=== PATIENT | male | born 1950 | race Caucasian/White ===

== ENCOUNTER → 2017-03-26 | Outpatient (CLI) | payer OTHER | LOC: FIMAGING 13:06 | PROVIDERS: ATTEND Physician Assistant Medical | DX: M85.88 Other specified disorders of bone density and structure, other site (principal); R60.0 Localized edema ==

== ENCOUNTER 2017-04-03 07:09 | Day surgery (SDC) | payer OTHER ==
[2017-04-03] MEDS ORDERED: NALOXONE HCL 0.4 MG/ML INJ ONE (07:28)
[2017-04-03] MEDS ORDERED: MIDAZOLAM 2 MG/2 ML VIAL ONE (07:28)
[2017-04-03] MEDS ORDERED: fentaNYL 100 MCG/2 ML INJ ONE (07:28)
[2017-04-03] MEDS ORDERED: FLUMAZENIL 0.5 MG/5 ML MDV IVP ONE (07:28)
[2017-04-03] MEDS ORDERED: fentaNYL 100 MCG/2 ML INJ IVP PRN (07:36)
[2017-04-03] MEDS ORDERED: PROTAMINE SULFATE 50 MG/5 ML VIAL IVP PRN (07:36)
[2017-04-03] MEDS ORDERED: FLUMAZENIL 0.5 MG/5 ML MDV IVP PRN (07:36)
[2017-04-03] MEDS ORDERED: MIDAZOLAM 2 MG/2 ML VIAL IVP PRN (07:36)
[2017-04-03] MEDS ORDERED: MEPERIDINE 25 MG/ML SYR IVP PRN (07:36)
[2017-04-03] MEDS ORDERED: NALOXONE HCL 0.4 MG/ML INJ IVP PRN (07:36)
[2017-04-03] MEDS ORDERED: NS 1,000 ML IV SCH (07:45)
--- NOTE | 2017-04-03 08:26 | PDRADPRE ---
Radiology History & Physical Indication for procedure: varicose veins, symptomatic, back pain Surgical history: Lower extremity thrombectomy and varicose vein treatment Home medications: Cyclobenzaprine 10 mg PO DAILY 03/31/17 [Last Taken 04/02/17] IBUPROFEN 800 mg PO Q6HRS 03/31/17 [Last Taken 04/02/17] Lisinopril 5 mg PO DAILY 03/31/17 [Last Taken 04/02/17] Metformin HCl 500 mg PO DAILY 03/31/17 [Last Taken 04/02/17] [place] 3 1,000 mg Softgel 1,000 mg PO DAILY 03/31/17 [Last Taken 04/02/17] Omeprazole 20 mg PO DAILY 03/31/17 [Last Taken 04/02/17] Tylenol 500 mg PO Q6HRS PRN 03/31/17 [Last Taken 04/02/17] Vitamin D3 10,000 units PO DAILY 03/31/17 [Last Taken 04/01/17] Warfarin Sodium 7.5 mg PO DAILY 03/31/17 [Last Taken 03/27/17] Allergies/Adverse Reactions: No Known Allergies Allergy (Unverified 03/31/17 15:57) Heart exam: regular rate and rhythm Lungs exam: clear to auscultation Mallampati Score: Class 2
--- NOTE | 2017-04-03 08:27 | PDPROPOC ---
Sedation Plan of Care Sedation Plan of Care: vital signs stable, mental status noted, patient educated of risks, benefits, alternatives, patient can tolerate sedation ASA Classification: ASA 2 Planned drugs: fentanyl, midazolam Mallampati Score: Class 3 Mallampati Reference Image: Patient passed 3-3-2 rule?: Yes
[2017-04-03 09:38] VITALS: BP 132/79; PULSE 74; RESP 18; O2SAT 97
--- NOTE | 2017-04-03 09:41 | PDRADPN ---
Radiology Procedure Note Date of Procedure: 04/03/17 Radiologist: Dao Michaels Composite Layup Worker(s): Marylu Moeller, RN Anesthesia: IV Sedation, Local (Specify) Pre-op Diagnosis: Left paraspinal mass Post-op Diagnosis: same Indication: pathology Procedure: CT guided biopsy left paraspinal mass Finding(s): solid mass left paraspinal at L4 Inf/Abcess present in the surg proc area at time of surgery?: No Depth: Deep Incisional (Fascial) (Left paraspinal musculature) EBL: Minimal Specimen(s): 18 ga core biopsies for path and culture
[2017-04-03] MEDS ORDERED: ACETAMINOPHEN 325 MG TAB PO PRN (09:44)
[2017-04-03] MEDS ORDERED: ONDANSETRON 4 MG/2 ML VIAL IVP PRN (09:44)
[2017-04-03 10:46] VITALS: TEMP 98.1
== END 2017-04-03 10:31 | disposition home or self-care (01) ==
LOC: FIMAGING 07:09
PROVIDERS: ATTEND Physician Assistant Medical
PROC: 0KBG3ZX Excision of Left Trunk Muscle, Percutaneous Approach, Diagnostic (ICD-10-PCS; principal; 2017-04-03 09:30)
DX: D21.6 Benign neoplasm of connective and other soft tissue of trunk, unspecified (principal); M54.5 Low back pain; M51.37 Other intervertebral disc degeneration, lumbosacral region; M54.42 Lumbago with sciatica, left side
CPT/HCPCS: J2250; J2310; J3010

== ENCOUNTER 2017-04-19 11:06 | Inpatient (IN) | payer OTHER ==
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
[2017-04-19] MEDS ORDERED: IOPAMIDOL (ISOVUE-300) 100 ML BTL ONE (11:57)
--- NOTE | 2017-04-19 12:02 | CPEKG ---
Heart Rate: 121 RR Interval: 496 P-R Interval: 156 QRSD Interval: 86 QT Interval: 292 QTC Interval: 415 P Stella: 60 QRS Stella: 1 T Wave Stella: 54 EKG Severity - BORDERLINE ECG - EKG Impression: SINUS TACHYCARDIA EKG Impression: PROBABLE LEFT ATRIAL ABNORMALITY Electronically Signed By: Shayne Bearden 19-Apr-2017 12:20:24
[2017-04-19 12:26] LABS: PLATELET COUNT 187 10^3/uL (150-400)
[2017-04-19 12:47] LABS: INR 3.24 (0.83-1.16); PROTIME(PATIENT) 32.9 SEC (12.0-15.0)
[2017-04-19] MEDS ORDERED: PIPERACILLIN/TAZO 4.5 GM/DEX 100 ML IV ONE (13:23)
[2017-04-19] MEDS ORDERED: NS 3,500 ML IV ONE (13:23)
[2017-04-19] MEDS ORDERED: VANCOMYCIN HCL/NORMAL SALINE 250 ML IV ONE (14:16)
[2017-04-19] MEDS ORDERED: GADOBUTROL 10 ML VIAL IVP ONE (15:04)
[2017-04-19] MEDS ORDERED: ONDANSETRON DISINTEGRATING 4 MG TAB PO PRN (15:25)
[2017-04-19] MEDS ORDERED: HYDROmorphONE/DILAUDID 1 MG/ML INJ IVP PRN (15:25)
[2017-04-19] MEDS ORDERED: oxyCODONE IR 5 MG TAB PO PRN (15:25)
[2017-04-19] MEDS ORDERED: ONDANSETRON 4 MG/2 ML VIAL IVP PRN (15:25)
[2017-04-19] MEDS ORDERED: D50W 25 GM/50 ML SYR IVP PRN (15:27)
[2017-04-19] MEDS ORDERED: INSULIN LISPRO 100 UNIT/ML SC SCH (15:30)
--- NOTE | 2017-04-19 15:46 | ASMTCMCOM ---
CM Note CM Note Notes: Pt presented to the ED for back pain, fever, difficulty walking, and confusion/AMS. Patient admitted for sepsis, encephelopathy Patient recently had a paraspinal mass removed on 04/03/17 here at [facility]. Patient lives with his Lisbet (pt's MDPOA) in [place]. Patient's PCP is Dr Sabrina Oconnor. Exact DC needs unknown, CM to follow. Date Signed: 04/19/2017 03:45 PM Electronically Signed By:Angelina Mak RN
[2017-04-19] MEDS ORDERED: VANCOMYCIN 1.5 GM in NS 250 ML IV ONE (16:00)
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
[2017-04-19] MEDS ORDERED: ACETAMINOPHEN 325 MG TAB ONE (16:08)
[2017-04-19] MEDS: ACETAMINOPHEN 325 MG TAB PO PRN ×2 (16:19→20:51)
--- NOTE | 2017-04-19 16:41 | PDMN ---
Medical Necessity Medical necessity: C/M review: Patient meets INPT criteria under MCG M-[160 Sepsis and other febrile illness without focal infection, M-600 Osteomyelitis: Acute and persistent sepsis, fevers, 38.1 T max, back pain, suspected source lumbar spine with concern for possible vertebral osteomyelitis, acute encephalopathy, hyponatremia, WBC 17.74, Na 133, VBG lactic acid 3.2, 1.9, requiring planned MRI lumbar spine, Infectious disease consult, echocardiogram, ongoing NPO, IV Cefepime Q 8 hrs., IV Vancomycin, cardiac monitoring, pulse oximetry, supplemental O2 in SDU, comorbid type 2 diabetes, history of DVT on chronic anticoagulation, chronic back pain, 04/03/2017 CT guided muscle biopsy of left psoas muscle which showed chronic inflammation and reactive fibrosis which could be consistent with a chronic infectious etiology such as osteomyelitis, recent 10 day steroid taper therapy - completed 2017. anticipates > 2 MN LOS for ongoing med nec for eval and [place] of above. Patient is Medicare Advantage which follows guidelines [facility] puts forth.
--- NOTE | 2017-04-19 18:05 | ECHO ---
[email or web address] [address] [address] Main: [phone] Fax: Transthoracic Echocardiogram Name: NELSON MOSCOSO MR#: [id number] Study Date: 04/19/2017 Study Time: 05:10 PM Date of : 1950 Age: 66 year(s) Height: 177.8 cm (70 in.) Weight: 117.94 kg (260 lb.) BSA: 2.33 m2 Gender: Male Examination: Echo Indication: sepsis, heart murmur. r/o vegetation Image Quality: Adequate Contrast: Requested by: Jossy Rodriguez BP: 144 mmHg/88 mmHg Heart Rate: Rhythm: Normal sinus rhythm Indication: sepsis, heart murmur. r/o vegetation Procedure Staff Racing Driver: Alissa Vaughan [facility] Reading Physician: Jania Miles Requesting Provider: Jossy Rodriguez Conclusions: Normal size left ventricle. Mild concentric LV hypertrophy. Normal global systolic LV function. EF is 59 %. No regional wall motion abnormality. Normal size right ventricle. Normal RV function. The aortic valve is tri-leaflet. Moderate aortic cusp calcification is present. There is no aortic valve regurgitation. Moderate calcific aortic valve stenosis. It is difficult to rule out a vegetation on the calcified aortic leaflets.. No prior echo. Results discussed with Dr. Rodriguez. Patient will be scheduled for CRESCENCIO Measurements: Chambers Valvular Assessment AV/MV Valvular Assessment TV/PV Normal Normal Normal Name Value Range Name Value Range Name Value Range Ao Chely (MM): 3.3 cm (2.2 cm-3.7 AV Vmax: 3.19 m/s (1 m/s-1.7 PV Vmax: 0.90 m/s (0.6 m/s-0.9 cm) m/s) m/s) IVSd (2D): 1.2 cm (0.6 cm-1.1 AV maxP mmHg ( - ) PV PGmax: 3 mmHg ( - ) cm) AV meanP mmHg ( - ) LVDd (2D): 4.8 cm (4.2 cm-5.9 RAJENDRA (VTI): 1.4 cm ( - ) cm) MV E Vmax: 0.92 m/s ( - ) LVDs (2D): 2.8 cm (2.1 cm-4 MV A Vmax: 0.63 m/s ( - ) cm) MV E/A: 1.46 ( - ) LVPWd (2D): 1.1 cm (0.6 cm-1 cm) LVOTd 2.4 cm 2.4 cm mm Patient: NELSON MOSCOSO Study Date: 04/19/2017 Page 1 of 2 05:10 PM LVEF (BP): 59 % (>=55 %) RVDd(2D): 3.1 cm (1.9 cm-3.8 cmmm) Continued Measurements: Chambers Valvular Assessment AV/MV Name Value Name Value LADs Lon.2 cm MV DecTime: 106 m/s LA Area: 20.0 cm2 MV E' Septal: 0.07 m/s LA Volume: 53 ml MV E/E' Septal: 13.60 LA Volume Index: 22.7 ml/m2 MV E/E' Lateral: 9.00 Additional Vessels Name Value Ao Ascendin.9 cm Findings: Left Ventricle: Normal size left ventricle. Mild concentric LV hypertrophy. Normal global systolic LV function. EF is 59 %. No regional wall motion abnormality. Right Ventricle: Normal size right ventricle. Normal RV function. Left Atrium: The left atrium is normal in size. Right Atrium: The right atrium is normal in size. Mitral Valve: The mitral valve is normal in appearance and function. There is no mitral valve regurgitation. No mitral stenosis is present. There is no mitral valve vegetation. Aortic Valve: The aortic valve is tri-leaflet. Moderate aortic cusp calcification is present. There is no aortic valve regurgitation. Mean aortic valve gradient 26. Moderate calcific aortic valve stenosis. It is difficult to rule out a vegetation on the calcified aortic leaflets.. Tricuspid Valve: The tricuspid valve is normal in appearance and function. There is no tricuspid valve regurgitation. No tricuspid valve vegetation. Pulmonic Valve: Pulmonary valve not well visualized. There is no pulmonic regurgitation seen. Aorta: Normal size aortic root measuring 3.3 cm. Normal size ascending aorta measuring 2.9 cm. IVC: The IVC is not well visualized. Pericardium: No pericardial effusion. (No Signature Object) Patient: NELSON MOSCOSO Study Date: 04/19/2017 Page 2 of 2 05:10 PM [id number]
[2017-04-19] MEDS: INSULIN LISPRO 100 UNIT/ML SC SCH ×2 (18:46→21:45)
[2017-04-19] MEDS: CEFEPIME HCL 2 GM in STERILE WATER INJ 12.5 ML IV SCH (19:23)
--- NOTE | 2017-04-19 20:33 | GCON ---
[f rep st] CONSULTATION NEUROSURGERY CONSULTATION DATE OF CONSULTATION: 04/19/2017 TIME SEEN: Patient was seen and evaluated at approximately 7:28 p.m. in the ICU at [facility]. HISTORY OF PRESENT ILLNESS: The patient is a 66-year-old man who was previously admitted with some l ow back pain, having a biopsy, which just showed some inflammatory tissue. He has a history of diabe beth and DVTs and is on chronic anticoagulation. [facility] and [facility]. He has had chronic back pain for about 6 months, but just recently has been worse, and he had MRI in March which showed abnormal appearance of the left side of the L3-4 i nterspace with some abnormal bone marrow edema and psoas edema. He did have a biopsy then, which pavel wed inflammatory tissue, but nothing more. Interestingly, he says that he felt much better after thi s biopsy. He was also thought to have pain from lumbar stenosis, which he was sent to get an outpati ent epidural steroid injection, and was recently on a 10-day steroid taper. As of yesterday, he had 10/10 back pain with a fever up to 103 degrees. He denied any other significant symptoms, such as ch est pain, shortness of breath, nausea or vomiting. He had a new MRI scan here today which on the STI R sequence shows increased signal in the L4 vertebral body, as well as the inferior portion of the L3 vertebral body. He does have mild L3-4 lateral recess stenosis and some contrast enhancement in the epidural space suggesting a mild phlegmon, but there is no sign of any nerve compression. I do not see any obvious epidural abscess or fluid collection. REVIEW OF SYSTEMS: A 10-point review of systems is negative other than described above in the HPI. PAST MEDICAL HISTORY: 1. Type 2 diabetes. 2. DVTs. 3. Chronic anticoagulation with supratherapeutic INR. 4. Chronic back pain. ALLERGIES: No known drug allergies. MEDICATIONS: The medications were reviewed within the electronic medical record and I do not have an y additions at this time. Of note, he is on warfarin. FAMILY HISTORY: Reviewed with the patient, but is noncontributory to this admission. SOCIAL HISTORY: The patient is and lives independently. He has 2 children. He is a lifetim e nonsmoker and denies any significant alcohol use. PHYSICAL EXAMINATION: VITAL SIGNS: He is currently afebrile with a temperature of 38.1, remainder o f his vital signs are normal and stable. GENERAL: He is awake, alert, and oriented x3. HEENT: Pup ils are equal, round, and react to light. Extraocular movements are intact. Face is symmetric. Ton munir is midline. Palate is symmetric. 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 In the lower extremities, he has full 5/5 s trength at the hip flexors/extensors, knee flexors/extensors, and plantar and dorsiflexion. He has n ormal sensation in the arms and legs and deep tendon reflexes are normal. He does have some midline tenderness in the lumbar spine consistent with the likely infection. LABORATORY DATA: His white count is 17.7, INR is 3.24, lactate is 3.0. Sodium is 133, potassium 4.3 , glucose is 197. IMAGING: Reviewed, see HPI. ASSESSMENT AND PLAN: The patient is a 66-year-old man who appears to have lumbar osteomyelitis at L4 and less so at L3. There is no sign of any compressive lesions of the canal, and I do not see any o bvious fluid collection, although there may be some phlegmon in the epidural space. Overall, I do no t see any need for surgical intervention at this time. We will follow along with the remainder of e infectious disease workup, and if his blood cultures are positive, he can be treated empirically wi antibiotics. If further source is needed, it is possible that Radiology could get a transpedicula r biopsy of the bone at L4. I do not see any good target for biopsy of fluid, as it does not appear there is any abscess fluid nearby. If his symptoms, specifically his leg symptoms worsen, then it is possible he could need a surgical intervention, but I doubt this will be the case. We will follow along and please do not hesitate to contact us with any further questions or concerns. Thanks for the kind consultation. /[id number]/MODL
[2017-04-20] MEDS: CEFEPIME HCL 2 GM in STERILE WATER INJ 12.5 ML IV SCH ×2 (02:06→13:29)
[2017-04-20] MEDS ORDERED: VANCOMYCIN 1.5 GM in NS 250 ML IV SCH (04:00)
[2017-04-20 05:26] LABS: PLATELET COUNT 124 10^3/uL (150-400)
[2017-04-20 05:35] LABS: INR 2.41 (0.83-1.16); PROTIME(PATIENT) 26.2 SEC (12.0-15.0)
--- NOTE | 2017-04-20 07:10 | NEUSURGPN ---
Assessment/Plan: Assessment: 66 yo male that is admitted to IM with back pain and fevers with staph aureus +BCs Plan: -Staph Aureus on BCs-not MRSA -pt seen by Dr Molina and imaging reviewed-no surgery recommended at this time -MRI looks like L3/4 osteo without abscess noted-maybe mild phlegmon-will recommend follow up MRI -no neuro symptoms-will continue to follow -PT/OT-CPM -pt to get a CRESCENCIO and brain MRI to check for other areas of infections -warning signs given -call with any questions or concerns -pt understands and agrees -ok for floor if MRI brain looks ok -d/w Dr Molina Subjective: Awake and alert. NAD. No N/V/D. No new events per Pt/RN Objective: AAO x 3, PERRLA/EOMI no droop CN 2-12 grossly intact +lt touch 5/5 BUE/BLE = Neuro Check Frequency: per routine Urinary Catheter in Place: No - Physician Discussed Patient with Dr.: Molina Patient Seen by Dr.: Molina Neurosurgery Physical Exam - Vitals, I&O, Labs I and O 04/19/17 04/20/17 04/21/17 05:59 05:59 05:59 Intake Total 1235 Output Total 1825 Balance -590 Weight 117.934 kg Intake: Oral (ml) 450 IV Intake (ml) 500 IV Infused (ml) 285 Cefepime HCl 2 gm In 25 Sterile Water Inj 12.5 ml @ 150 mls/hr IV Q8H ASHLEY Rx#:[id number] Vancomycin 1.5 gm In Ns 260 250 ml @ 166.667 mls/hr IV Q12H ASHLEY Rx#: [id number] Output: Urine (ml) 1825 Urinal 1825 Other: Number of Voids Urinal 2 Vital Signs Temp Pulse Resp BP Pulse Ox 36.9 C 78 19 117/51 L 98 04/20/17 02:11 04/20/17 04:00 04/20/17 04:00 04/20/17 04:00 04/20/17 04:00 Laboratory Results 04/20/17 05:15 04/20/17 05:15 ICD10 Worksheet Patient Problems: Problems Problem Status Onset Sepsis Acute
[2017-04-20] MEDS: INSULIN LISPRO 100 UNIT/ML SC SCH ×4 (08:07→20:22)
[2017-04-20] MEDS ORDERED: MIDAZOLAM 2 MG/2 ML VIAL IVP ONE (08:26)
[2017-04-20] MEDS ORDERED: BENZOCAINE UNIT DOSE SPRAY HURRICAINE MM ONE (08:26)
[2017-04-20] MEDS ORDERED: fentaNYL 100 MCG/2 ML INJ IVP ONE (08:26)
[2017-04-20] MEDS ORDERED: NS 500 ML IV ONE (08:26)
[2017-04-20] MEDS ORDERED: NON-FORMULARY NEW DRUG (Omeprazole [Omeprazole] 20 MG) PO SCH (09:00)
[2017-04-20] MEDS ORDERED: PROPOFOL 200 MG/20 ML VIAL ONE (09:25)
--- NOTE | 2017-04-20 09:30 | PDHPUP ---
History & Physical Update H&P update statement: This history and physical update is based on an assessment of the patient which was completed after admission or registration (within 24 hours), but prior to the surgery/procedure. H&P update: H&P reviewed & patient examined, no change in patient's condition since H&P completed
[2017-04-20] MEDS ORDERED: ATROPINE SULFATE 1 MG/10 ML SYR ONE (09:32)
[2017-04-20] MEDS ORDERED: ALBUTEROL 3 ML DEYVIAL IH PRN (09:34)
[2017-04-20] MEDS ORDERED: ONDANSETRON 4 MG/2 ML VIAL IVP PRN (09:34)
[2017-04-20] MEDS ORDERED: ACETAMINOPHEN 500 MG TAB PO PRN (09:34)
[2017-04-20] MEDS ORDERED: NALOXONE HCL 0.4 MG/ML INJ IVP PRN (09:34)
--- NOTE | 2017-04-20 09:35 | PDANEPAE ---
ANE History of Present Illness CRESCENCIO ANE Past Medical History - Cardiovascular History Hx Hypertension: Yes Hx Arrhythmias: No Hx Chest Pain: No Hx Coronary Artery / Peripheral Vascular Disease: Yes Hx CHF / Valvular Disease: No Hx Palpitations: No Cardiovascular History Comment: LLE DVT due to "scared vessels"/vascular insuficiency; - Pulmonary History Hx COPD: No Hx Asthma/Reactive Airway Disease: No Hx Recent Upper Respiratory Infection: No Hx Oxygen in Use at Home: No Hx Sleep Apnea: No - Neurologic History Hx Cerebrovascular Accident: No Hx Seizures: No Hx Dementia: No - Endocrine History Hx Diabetes: Yes Endocrine History Comment: Type 2 DM - Renal History Hx Renal Disorders: No - Liver History Hx Hepatic Disorders: No - Neurological & Psychiatric Hx Hx Neurological and Psychiatric Disorders: No - Cancer History Hx Cancer: No - Congenital Disorder History Hx Congenital Disorders: No - GI History Hx Gastrointestinal Disorders: Yes Gastrointestinal History Comment: GERD; - Other Health History Other Health History: "minor anemia" - Chronic Pain History Chronic Pain: Yes (middle/lower back) - Surgical History Prior Surgeries: L Quad repair; LLE DVT w/ treatment x 2 w/ last one in 2012; T& A; wisdom teeth; L wrist fx w/ surgical repair; ANE Review of Systems Review of Systems: ANE Patient History - Allergies Allergies/Adverse Reactions: No Known Allergies Allergy (Unverified 03/31/17 15:57) - Home Medications Home Medications: Acetaminophen [Tylenol ES 500 mg (*)] 500 mg PO Q6 PRN 04/19/17 [Last Taken Unknown] Cholecalciferol Vit D3 [Vitamin D3 (*)] 10,000 units PO DAILY 04/19/17 [Last Taken Unknown] Cyclobenzaprine [Flexeril 10 MG (*)] 10 mg PO HS PRN 04/19/17 [Last Taken ] Ibuprofen [Motrin (*)] 800 mg PO Q8 PRN 04/19/17 [Last Taken Unknown] Lisinopril [Zestril 5 mg (*)] 5 mg PO DAILY 04/19/17 [Last Taken Unknown] [place]-3 Fatty Acids [Fish Oil 1000 mg (*)] 1,000 mg PO DAILY 04/19/17 [Last Taken Unknown] Omeprazole 20 mg PO DAILY 04/19/17 [Last Taken Unknown] Warfarin Sodium [Coumadin 7.5MG (*)] 7.5 mg PO DAILY16 04/19/17 [Last Taken ] metFORMIN HCL [Metformin HCl] 1,000 mg PO HS 04/19/17 [Last Taken Unknown] - Smoking Hx Smoking Status: Never smoked - Family Anes Hx Family Hx Anesthesia Complications: denies ANE Labs/Vital Signs - Labs Result Diagrams: 04/20/17 05:15 04/20/17 05:15 - Vital Signs Blood Pressure: 112/71 Heart Rate: 80 Respiratory Rate: 18 O2 Sat (%): 97 Height: 177.8 cm Weight: 117.934 kg ANE Physical Exam - Airway Neck exam: decreased ROM Mallampati Score: Class 2 - Pulmonary Pulmonary: clear to auscultation - Cardiovascular Cardiovascular: regular rate and rhythym, systolic murmur - ASA Status ASA Status: III ANE Anesthesia Plan Anesthesia Plan: GA with mask
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
[2017-04-20] MEDS: PANTOPRAZOLE SODIUM 40 MG TAB PO SCH (10:36)
--- NOTE | 2017-04-20 10:38 | POSTANESTH ---
Post Anesthetic Evaluation Cardiovascular Status: Normal, Stable Respiratory Status: Normal, Stable Level of Consciousness/Mental Status: Can Participate in Eval Pain Control: Adequate, Prn Tx Ordered Nausea/Vomiting Control: Adequate, Prn Tx Ordered Complications Possibly Related to Anesthesia: None Noted
[2017-04-20] MEDS ORDERED: GADOBUTROL 10 ML VIAL IVP ONE (12:35)
[2017-04-20] MEDS: ACETAMINOPHEN 325 MG TAB PO PRN (13:29)
--- NOTE | 2017-04-20 14:32 | ECHO ---
[email or web address] [address] [address] Main: [phone] Fax: Transesophageal Echocardiography Name: NELSON MOSCOSO MR#: [id number] Study Date: 04/20/2017 Study Time: 09:37 AM Date of : 1950 Age: 66 year(s) Height: ( ) Weight: ( ) BSA: Gender: Male Examination: CRESCENCIO Indication: eval AV for vegetation Image Quality: Contrast: Requested by: Jossy Rodriguez Heart Rate: Rhythm: BP: / Procedure Staff Bread Racker: Alissa Vaughan [facility] Reading Physician: Jania Miles Requesting Provider: Jossy Rodriguez CRESCENCIO Exam Details Patient Consent: Risks, alternatives of procedure explained to patient, informed consent obtained. Patient Fasting: yes Conclusions: Normal size left ventricle. Normal global systolic LV function. Upper normal size right ventricle. Normal RV function. The left atrium is mildly dilated. An agitated saline study was performed and was negative for intracardiac shunting. No thrombus in left appendage. The aortic valve is tri-leaflet. Small mobile echo noted on the aortic side of the non-coronary leaflet, could be vegetation, lamble or calcification. Mild to moderate calcification of the non and left aortic leaflets. No aortic regurgitation. Moderate aortic stenosis. Measurements: Chambers Valvular Assessment AV/MV Valvular Assessment TV/PV Normal Normal Normal Name Value Range Name Value Range Name Value Range Additional Measurements: Patient: NELSON MOSCOSO Study Date: 04/20/2017 Page 1 of 2 09:37 AM Findings: Left Ventricle: Normal size left ventricle. Normal global systolic LV function. Right Ventricle: Upper normal size right ventricle. Normal RV function. Left Atrium: The left atrium is mildly dilated. An agitated saline study was performed and was negative for intracardiac shunting. Left Atrial Appendage: No thrombus in left appendage. Right Atrium: The right atrium is mildly dilated. Definite Eustachian valve in right atrium. Mitral Valve: The mitral valve is normal in appearance and function. There is mild thickening of the mitral valve leaflets. Trivial to mild mitral regurgitation. There is no mitral valve vegetation. Aortic Valve: The aortic valve is tri-leaflet. Small mobile echo noted on the aortic side of the non-coronary leaflet, could be vegetation, lamble or calcification. Mild to moderate calcification of the non and left aortic leaflets. No aortic regurgitation. Moderate aortic stenosis. Tricuspid Valve: The tricuspid valve is normal in appearance and function. There is no significant tricuspid valve regurgitation. No tricuspid valve vegetation. Pulmonic Valve: The pulmonic valve is normal in appearance and function. There is mild pulmonic cusp thickening. There is no pulmonary valve vegetation. l1n (No Signature Object) Patient: NELSON MOSCOSO Study Date: 04/20/2017 Page 2 of 2 09:37 AM [id number]
[2017-04-20] MEDS ORDERED: HYDROmorphone HCL/NS 0.5 MG/ML SYR IVP PRN (15:30)
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
--- NOTE | 2017-04-20 16:11 | HOSPPROG ---
Hospitalist Progress Note Assessment/Plan: 66 yo M w low back pain, sepsis and mssa bacteremia. imaging s/o L spine osteomyelitis mssa bacteremia: on cefazolin CRESCENCIO w AoV lesion although not clearly vegetaion exam notable for no embolic phenomena source is likley L3L4 osteomyelitis psoas phlegmon: no abscess per mri may need repeat imaging no LE weakness ? endocarditis: by [facility] criteria, has SBE if AoV lesion considered to be vegetation very small per dr clements requires prolonged abx for vertebral osteomyelitis ekg w normal intervals (interp by me) pain- well controlled h/o multplie dvt: resume warfarin dispo: inpt Subjective: defervesced. case d/w sammy Objective: Vital Signs Temp Pulse Resp BP Pulse Ox 37.4 C 94 16 118/55 L 93 04/20/17 12:00 04/20/17 12:00 04/20/17 12:00 04/20/17 12:00 04/20/17 12:00 Laboratory Results 04/20/17 05:15 04/20/17 05:15 04/19/17 04/20/17 04/21/17 05:59 05:59 05:59 Intake Total 1235 1460 Output Total 1825 125 Balance -590 1335 PT 26.2 SEC (12.0-15.0) H 04/20/17 05:15 INR 2.41 (0.83-1.16) H 04/20/17 05:15 - Physical Exam Constitutional: no apparent distress, appears nourished Eyes: PERRL, anicteric sclera Ears, Nose, Mouth, Throat: moist mucous membranes, hearing normal Cardiovascular: regular rate and rhythym, systolic murmur Respiratory: no respiratory distress, no rales or rhonchi Gastrointestinal: normoactive bowel sounds, soft, non-tender abdomen Genitourinary: no bladder fullness, No ponce in urethra Skin: warm, other (no splinter hemorrhages or janeway) Musculoskeletal: full muscle strength, no muscle tenderness Neurologic: AAOx3, sensation intact bilaterally Psychiatric: interacting appropriately Lymph, Heme, Immunologic: No no cervical LAD ICD10 Worksheet Patient Problems: Problems Problem Status Onset Sepsis Acute
[2017-04-20] MEDS ORDERED: CYCLOBENZAPRINE 10 MG TAB PO PRN (16:22)
[2017-04-20] MEDS: WARFARIN SODIUM 7.5 MG TAB PO SCH (16:58)
[2017-04-20] MEDS: ceFAZolin 2 GM/SWFI 2 GM/20 ML SYR IVP SCH (20:27)
[2017-04-20] MEDS ORDERED: ceFAZolin 2 GM/DEXTROSE 100 ML IV SCH (22:00)
[2017-04-21] MEDS: ceFAZolin 2 GM/SWFI 2 GM/20 ML SYR IVP SCH ×3 (05:36→21:13)
[2017-04-21] MEDS: INSULIN LISPRO 100 UNIT/ML SC SCH ×4 (07:28→21:11)
--- NOTE | 2017-04-21 08:23 | NEUSURGPN ---
Assessment/Plan: Assessment: 66 yo male that is admitted to IM with back pain and fevers with staph aureus +BCs Plan: -Staph Aureus on BCs-not MRSA -MRI looks like L3/4 osteo without abscess noted-maybe mild phlegmon-will recommend follow up MRI -Patient continues to improve with back and left leg symptoms, slept through the night without medications -PT/OT -pt to get a CRESCENCIO and brain MRI to check for other areas of infections -MRI brain with sinusitis, no other abnormalities seen -It is our hopes the patient can continue to improve with current antbx treatment regimen and avoid surgery -We will sign off, please contact neurosurgery with any questions or change in status -Warning signs and symptoms discussed with patient -Discussed patient with Dr Molina Subjective: Symptoms improving Objective: AAO x 3, PERRLA/EOMI no droop CN 2-12 grossly intact +lt touch 5/5 BUE/BLE = Neuro Check Frequency: per routine Urinary Catheter in Place: No - Physician Discussed Patient with Dr.: Molina Neurosurgery Physical Exam - Vitals, I&O, Labs I and O 04/20/17 04/21/17 04/22/17 05:59 05:59 05:59 Intake Total 1235 2803 Output Total 1825 1145 Balance -590 1658 Weight 117.934 kg 117.934 kg Intake: Oral (ml) 450 2520 IV Intake (ml) 500 283 IV Infused (ml) 285 Cefepime HCl 2 gm In 25 Sterile Water Inj 12.5 ml @ 150 mls/hr IV Q8H ASHLEY Rx#:[id number] Vancomycin 1.5 gm In Ns 260 250 ml @ 166.667 mls/hr IV Q12H ASHLEY Rx#: [id number] Output: Urine (ml) 1825 1145 Urinal 1825 1145 Other: Number of Voids Urinal 2 3 Vital Signs Temp Pulse Resp BP Pulse Ox 36.3 C 85 15 128/69 H 94 04/21/17 07:34 04/21/17 07:34 04/21/17 07:34 04/21/17 07:34 04/21/17 07:34 Laboratory Results 04/20/17 05:15 04/20/17 05:15 ICD10 Worksheet Patient Problems: Problems Problem Status Onset Sepsis Acute
--- NOTE | 2017-04-21 09:40 | ASMTCMCOM ---
CM Note CM Note Notes: Faxed patient onfo to 3[facility]der to becker out the cost of receiving IV ABX at home vs coming into the infusion clinic. Date Signed: 04/21/2017 09:40 AM Electronically Signed By:Sue Hill LCSW
[2017-04-21] MEDS: PANTOPRAZOLE SODIUM 40 MG TAB PO SCH (09:44)
[2017-04-21 10:00] LABS: PLATELET COUNT 131 10^3/uL (150-400)
--- NOTE | 2017-04-21 10:58 | PCMIDPN ---
Assessment/Plan: #Sepsis: resolved, due to multiple sites of infection from MSSA #MSSA AV endocarditis (sm veg) with L paraspinous phlegmon 4 x 3.5cm and L3 and L4 OM/discitis. MRI brain negative. I did not detect any neuro deficits. Delirium resolved, WBC normalized. --continue high dose cefazolin IV, will need 8 weeks of IV antibiotics , 06/16 stop date --awaiting repeat blood cx collected today 04/21 --discussed skin care Medications 3 Generic Name Dose Route Start Last Admin Trade Name Fretal PRN Reason Stop Dose Admin Cefazolin Sodium 2 gm in 20 mls @ 200 mls/hr 04/20/17 22:00 04/21/17 05:36 Cefazolin Syringe IVP 05/20/17 21:59 20 mls Q8HRS ASHLEY micro 04/19 Blood cx (2) MSSA 04/21 blood cx (2) pending Subjective: feeling much better, still w some mild L sided lower back pain at level of sacrum. Looser stool following drinking prune juice plans to change is diet for the better Objective: Vital Signs Temp Pulse Resp BP Pulse Ox 36.3 C 85 15 128/69 H 94 04/21/17 07:34 04/21/17 07:34 04/21/17 07:34 04/21/17 07:34 04/21/17 07:34 Laboratory Results 04/21/17 09:40 04/20/17 05:15 04/20/17 04/21/17 04/22/17 05:59 05:59 05:59 Intake Total 1235 2803 Output Total 1825 1145 Balance -590 1658 - Physical Exam General Appearance: alert, no apparent distress EENT: pale conjunctiva, other (MMM), No scleral icterus Respiratory: lungs clear, No accessory muscle use Cardiac/Chest: regular rate, rhythm, No systolic murmur Abdomen: normal bowel sounds, non-tender, soft Male Genitalia: No ponce Skin: No diaphoresis, No jaundice, No rash, No embolic lesions Neuro/Psych: no motor/sensory deficits, alert, normal mood/affect, oriented x 3 - Time Spent With Patient Time Spent with Patient: greater than 35 minutes (reviewed findings, extent of infection, planned therapy and potential need for surgical debridement of lumbar process. Coordinated care with Dr. Car and Dr. Hernandez) Time Spent with Patient: Greater than 35 minutes spent on this patients care, greater than 50% of time spent counseling, educating, and coordinating care regarding the above mentioned plan. ICD10 Worksheet Patient Problems: Problems Problem Status Onset Sepsis Acute
--- NOTE | 2017-04-21 11:48 | HOSPPROG ---
Hospitalist Progress Note Assessment/Plan: # severe sepsis (fever, leukocytosis) d/t MSSA bacteremia - cont IV ancef - repeat BCx today NGTD # L3-4 osteomyelitis with psoas phlegmon - mild L leg numbness - nsg following # possible AV endocarditis - no stigmata of endocarditis but small veg on CRESCENCIO - does not change duration of abx # hx DVT - cont warfarin # DM2 - on metformin - cont lispro SSI Subjective: still numb on outside of L leg Objective: Vital Signs Temp Pulse Resp BP Pulse Ox 36.3 C 85 15 128/69 H 94 04/21/17 07:34 04/21/17 07:34 04/21/17 07:34 04/21/17 07:34 04/21/17 07:34 Laboratory Results 04/21/17 09:40 04/20/17 05:15 04/20/17 04/21/17 04/22/17 05:59 05:59 05:59 Intake Total 1235 2803 Output Total 1825 1145 Balance -590 1658 PT 26.2 SEC (12.0-15.0) H 04/20/17 05:15 INR 2.41 (0.83-1.16) H 04/20/17 05:15 chart reviewed MRIs reviewed abd CT reviewed discussed with Nannette Finnegan and Josep - Physical Exam Constitutional: no apparent distress, appears nourished Cardiovascular: regular rate and rhythym, systolic murmur, No irregularly irregular, No diastolic murmur Respiratory: no respiratory distress, no rales or rhonchi, clear to auscultation Gastrointestinal: normoactive bowel sounds, soft, non-tender abdomen, no palpable masses ICD10 Worksheet Patient Problems: Problems Problem Status Onset Sepsis Acute
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
--- NOTE | 2017-04-21 14:32 | ASMTCMCOM ---
CM Note CM Note Notes: Ita here from [facility]. Patient's cost is $43.92/wk which will incl RN and supplies. Patient would like to have IV ABX at home. has ordered PT in the hospital. This CM asked Ita, to look for RN and PT to follow with HC at time of discharge. Date Signed: 04/21/2017 02:32 PM Electronically Signed By:Sue Hill LCSW
[2017-04-21] MEDS: WARFARIN SODIUM 7.5 MG TAB PO SCH (16:08)
[2017-04-21] MEDS: ACETAMINOPHEN 325 MG TAB PO PRN (16:08)
[2017-04-22] MEDS: ACETAMINOPHEN 325 MG TAB PO PRN ×5 (05:02→23:05)
[2017-04-22] MEDS: ceFAZolin 2 GM/SWFI 2 GM/20 ML SYR IVP SCH ×3 (05:39→21:15)
[2017-04-22 06:11] LABS: INR 1.65 (0.83-1.16); PROTIME(PATIENT) 19.6 SEC (12.0-15.0)
[2017-04-22] MEDS: INSULIN LISPRO 100 UNIT/ML SC SCH ×4 (09:02→21:16)
[2017-04-22] MEDS: PANTOPRAZOLE SODIUM 40 MG TAB PO SCH (09:04)
--- NOTE | 2017-04-22 13:52 | PCMIDPN ---
Assessment/Plan: #Sepsis: resolved, due to multiple sites of infection from MSSA #MSSA AV endocarditis (sm veg) with L paraspinous phlegmon 4 x 3.5cm and L3 and L4 OM/discitis. blood cx 04/21 neg --continue high dose cefazolin IV, will need 8 weeks of IV antibiotics , 06/16 stop date --if blood cx neg tomorrow can place PICC and dc home --completed interagency form, discussed w case management. Coordinated care with DR. Hernandez [facility] cefazolin IV #2 micro 04/19 Blood cx (2) MSSA 04/21 blood cx (2) NGTD Subjective: Patient rode a stationary bicycle this a.m. Feeling generally well, mild increase in back pain overnight Objective: Vital Signs Temp Pulse Resp BP Pulse Ox 36.8 C 73 16 126/82 H 94 04/22/17 08:00 04/22/17 08:00 04/22/17 08:00 04/22/17 08:00 04/22/17 08:00 Laboratory Results 04/21/17 09:40 04/22/17 05:16 04/21/17 04/22/17 04/23/17 05:59 05:59 05:59 Intake Total 2803 1950 Output Total 1145 2425 Balance 1658 -475 General Appearance: alert, no apparent distress EENT: pale conjunctiva, no thrush, MMM), No scleral icterus Respiratory: lungs clear, No accessory muscle use Cardiac/Chest: regular rate, rhythm, faint systolic murmur Abdomen: normal bowel sounds, non-tender, soft Male Genitalia: No ponce Skin: No diaphoresis, No jaundice, No rash, No embolic lesions Neuro/Psych: no motor/sensory deficits, alert, normal mood/affect, oriented x 3 - Time Spent With Patient Time Spent with Patient: greater than 35 minutes Time Spent with Patient: Greater than 35 minutes spent on this patients care, greater than 50% of time spent counseling, educating, and coordinating care regarding the above mentioned plan. ICD10 Worksheet Patient Problems: Problems Problem Status Onset Sepsis Acute
--- NOTE | 2017-04-22 13:53 | PDIAF ---
- Diagnosis Diagnosis: MSSA AV endocarditis & L paraspinous phlegmon L3 and L4 OM/discitis Code Status: Full Code - Medication Management Discharge Medications: Medications to Continue on Transfer Acetaminophen [Tylenol ES 500 mg (*)] 500 mg PO Q6 PRN 04/19/17 [Last Taken Unknown] Cholecalciferol Vit D3 [Vitamin D3 (*)] 10,000 units PO DAILY 04/19/17 [Last Taken Unknown] Cyclobenzaprine [Flexeril 10 MG (*)] 10 mg PO HS PRN 04/19/17 [Last Taken ] Ibuprofen [Motrin (*)] 800 mg PO Q8 PRN 04/19/17 [Last Taken Unknown] Lisinopril [Zestril 5 mg (*)] 5 mg PO DAILY 04/19/17 [Last Taken Unknown] [place]-3 Fatty Acids [Fish Oil 1000 mg (*)] 1,000 mg PO DAILY 04/19/17 [Last Taken Unknown] Omeprazole 20 mg PO DAILY 04/19/17 [Last Taken Unknown] Warfarin Sodium [Coumadin 7.5MG (*)] 7.5 mg PO DAILY16 04/19/17 [Last Taken ] metFORMIN HCL [Metformin HCl] 1,000 mg PO HS 04/19/17 [Last Taken Unknown] [employer] 2[employer] Antibiotics: cefazolin 6gm IV continuous infusion Care Home Antibiotic Stop Date: 06/16/17 Discharge Medications: Refer to the Discharge Home Medication list for PRN reason. PICC Care - Routine: Yes - Orders Services needed: Home Care, Registered Nurse Home Care Face to Face: I certify that this patient was under my care and that I had the required [id number] encounter meeting the encounter requirements on the discharge day. My findings support the fact that the patient is homebound as defined in Home Care Face to Face Continued: CMS Chapter 7 Medicare Benefits Manual 30.1.1 , The condition of the patient is such that there exists a normal inability to leave home and consequently, leaving home would require a considerable and taxing effort. Isolation Type: None - Labs/Radiology CBC w/diff Date: 04/27/17 (weekly Thursday) CMP Date: 04/27/17 (weekly Thursday) Call or Fax Lab and Imaging Results to: Dedra Finnegan MD [facility] at fax [phone] - Follow Up Care Current Providers and Referrals: Sabrina Oconnor [Primary Care Provider] - As per Instructions Dedra Finnegan MD [Medical Doctor] - 05/05/17 11:00 am
--- NOTE | 2017-04-22 14:17 | ASMTCMCOM ---
CM Note CM Note Notes: Received call from Casper at [facility], can accept pt for RN/PT. Pt will dc home likely tomorrow. DC Plan: Homecare + [facility] Date Signed: 04/22/2017 02:17 PM Electronically Signed By:Sharmila Sage RN
--- NOTE | 2017-04-22 14:33 | HOSPPROG ---
Hospitalist Progress Note Assessment/Plan: # severe sepsis (fever, leukocytosis) d/t MSSA bacteremia - cont IV ancef, plan 8 weeks - repeat BCx today NGTD # L3-4 osteomyelitis with psoas phlegmon - mild L leg numbness - nsg following # likely AV endocarditis - no stigmata of endocarditis but small veg on CRESCENCIO - does not change duration of abx # hx DVT - cont warfarin; INR slightly low - increased dose tonight # DM2 - on metformin - cont lispro SSI Subjective: feels well today; back still hurts but he was able to ride a stationary bike this am Objective: Vital Signs Temp Pulse Resp BP Pulse Ox 36.8 C 73 16 126/82 H 94 04/22/17 08:00 04/22/17 08:00 04/22/17 08:00 04/22/17 08:00 04/22/17 08:00 Laboratory Results 04/21/17 09:40 04/22/17 05:16 04/21/17 04/22/17 04/23/17 05:59 05:59 05:59 Intake Total 2803 1950 Output Total 1145 2425 Balance 1658 -475 PT 19.6 SEC (12.0-15.0) H 04/22/17 05:16 INR 1.65 (0.83-1.16) H 04/22/17 05:16 - Physical Exam Constitutional: no apparent distress, appears nourished Cardiovascular: regular rate and rhythym, systolic murmur, No irregularly irregular, No diastolic murmur, No JVD Respiratory: no respiratory distress, no rales or rhonchi Gastrointestinal: soft, non-tender abdomen, No distension ICD10 Worksheet Patient Problems: Problems Problem Status Onset Sepsis Acute
[2017-04-22] MEDS ORDERED: WARFARIN SODIUM 5 MG TAB PO ONE (16:00)
[2017-04-23 05:28] LABS: INR 1.97 (0.83-1.16); PROTIME(PATIENT) 22.5 SEC (12.0-15.0)
[2017-04-23] MEDS: ceFAZolin 2 GM/SWFI 2 GM/20 ML SYR IVP SCH ×3 (05:43→21:50)
[2017-04-23] MEDS: PANTOPRAZOLE SODIUM 40 MG TAB PO SCH (08:22)
[2017-04-23] MEDS: ACETAMINOPHEN 325 MG TAB PO PRN ×2 (08:45→18:10)
[2017-04-23] MEDS: INSULIN LISPRO 100 UNIT/ML SC SCH ×4 (09:28→21:50)
--- NOTE | 2017-04-23 11:50 | PCMIDPN ---
Assessment/Plan: #Sepsis: resolved, due to multiple sites of infection from MSSA #MSSA AV endocarditis (sm veg) with L paraspinous phlegmon 4 x 3.5cm and L3 and L4 OM/discitis. 1/2 of blood cx positive from 04/21 today. no new labs today. Temp max 99 --continue high dose cefazolin IV, will need 8 weeks of IV antibiotics , 06/16 stop date --repeat blood cx today --interagency completed and follow-up appointments established Medications cefazolin IV #3 micro 04/19 Blood cx (2) MSSA 04/21 blood cx (1/2) GPC Subjective: Back pain is a little better today. Yesterday was increased after increased activity. No shortness of breath or cough. No diarrhea Objective: Vital Signs Temp Pulse Resp BP Pulse Ox 37.1 C 76 18 129/94 H 92 04/23/17 07:31 04/23/17 07:31 04/23/17 07:31 04/23/17 07:31 04/23/17 07:31 Laboratory Results 04/21/17 09:40 04/22/17 05:16 04/22/17 04/23/17 04/24/17 05:59 05:59 05:59 Intake Total 1950 Output Total 6607 9403 542 Balance -475 -2967 -119 - Physical Exam General Appearance: alert, no apparent distress, obese EENT: pale conjunctiva, No thrush Respiratory: lungs clear, No accessory muscle use Neck: supple Cardiac/Chest: regular rate, rhythm, systolic murmur (Faint) Extremities: No pedal edema Abdomen: non-tender, soft Skin: pallor, No diaphoresis, No jaundice, No rash Neuro/Psych: alert, normal mood/affect, oriented x 3 ICD10 Worksheet Patient Problems: Problems Problem Status Onset Sepsis Acute
--- NOTE | 2017-04-23 14:44 | HOSPPROG ---
Hospitalist Progress Note Assessment/Plan: # severe sepsis (fever, leukocytosis) d/t MSSA bacteremia - surveillance cultures positive - more drawn today - cont IV ancef, plan 8 weeks # L3-4 osteomyelitis with psoas phlegmon - mild L leg numbness - nsg following # AV endocarditis - no stigmata of endocarditis but small veg on CRESCENCIO; notably, he reports his murmur is new - does not change duration of abx # hx DVT - cont warfarin - recheck INR tomorrow # DM2 - on metformin (holding) - cont lispro SSI Subjective: back pain better Objective: Vital Signs Temp Pulse Resp BP Pulse Ox 37.1 C 76 18 129/94 H 92 04/23/17 07:31 04/23/17 07:31 04/23/17 07:31 04/23/17 07:31 04/23/17 07:31 Laboratory Results 04/21/17 09:40 04/22/17 05:16 04/22/17 04/23/17 04/24/17 05:59 05:59 05:59 Intake Total 1950 Output Total 2425 1475 500 Balance -475 -1475 -500 PT 22.5 SEC (12.0-15.0) H 04/23/17 04:47 INR 1.97 (0.83-1.16) H 04/23/17 04:47 - Physical Exam Constitutional: no apparent distress, appears nourished Cardiovascular: regular rate and rhythym, systolic murmur, No irregularly irregular, No diastolic murmur Respiratory: no respiratory distress, no rales or rhonchi, clear to auscultation Gastrointestinal: soft, non-tender abdomen, no palpable masses ICD10 Worksheet Patient Problems: Problems Problem Status Onset Sepsis Acute
--- NOTE | 2017-04-23 16:14 | ASMTCMCOM ---
CM Note CM Note Notes: Spoke w/, pt not ready for dc, positive blood cultures, can discharge on Thursday at earliest. Luz at [facility] notified. [facility] Date Signed: 04/23/2017 04:13 PM Electronically Signed By:Sharmila Sage RN
[2017-04-23] MEDS: WARFARIN SODIUM 7.5 MG TAB PO SCH (16:40)
[2017-04-23 23:36] VITALS: RESP 16
[2017-04-24] MEDS: ACETAMINOPHEN 325 MG TAB PO PRN ×4 (04:38→20:57)
[2017-04-24] MEDS: ceFAZolin 2 GM/SWFI 2 GM/20 ML SYR IVP SCH ×3 (05:09→20:57)
[2017-04-24 06:22] LABS: INR 2.25 (0.83-1.16); PROTIME(PATIENT) 24.9 SEC (12.0-15.0)
[2017-04-24] MEDS: INSULIN LISPRO 100 UNIT/ML SC SCH ×4 (08:33→20:56)
[2017-04-24] MEDS: PANTOPRAZOLE SODIUM 40 MG TAB PO SCH (08:34)
--- NOTE | 2017-04-24 11:08 | PCMIDPN ---
Assessment/Plan: Assessment: MSSA aortic valve endocarditis, paraspinous phlegmon in the lumbar area, L3-L4 diskitis. Covering with high-dose cefazolin 2 g IV q.8 hours. Patient appears to be clinically improving. Back pain is stable to improved. Plan: 1. Continue IV cefazolin 2 g q.8 hours. Duration of 8 weeks. 2. Follow up repeat blood cultures. 3. Follow weekly toxicity labs. 4. Follow clinical appearance. 04/24/17 16:42 Subjective: Patient is resting in a chair in his hospital room. He is joined by friends who are visiting. He reports no new complaints. States he is gradually feeling better. Tolerating cefazolin without complaint of skin rash or diarrhea. Objective: Cefazolin # 4 Vital Signs Temp Pulse Resp BP Pulse Ox 37.1 C 83 16 152/78 H 91 L 04/24/17 07:22 04/24/17 07:22 04/24/17 07:22 04/24/17 07:22 04/24/17 07:22 Laboratory Results 04/21/17 09:40 04/22/17 05:16 04/23/17 04/24/17 04/25/17 05:59 05:59 05:59 Output Total 1475 500 Balance -1475 -500 - Physical Exam General Appearance: WD/WN, alert, no apparent distress, non-toxic Respiratory: lungs clear, normal breath sounds, No respiratory distress Cardiac/Chest: regular rate, rhythm, systolic murmur, No tachycardia Skin: normal color, warm/dry, No rash Neuro/Psych: alert, normal mood/affect, oriented x 3 ICD10 Worksheet Patient Problems: Problems Problem Status Onset Sepsis Acute
--- NOTE | 2017-04-24 14:30 | HOSPPROG ---
Hospitalist Progress Note Assessment/Plan: # severe sepsis (fever, leukocytosis) d/t MSSA bacteremia - surveillance cultures positive - more drawn today - cont IV ancef, plan 8 weeks # L3-4 osteomyelitis with psoas phlegmon - mild L leg numbness - nsg following # AV endocarditis - no stigmata of endocarditis but small veg on CRESCENCIO; notably, he reports his murmur is new - does not change duration of abx # hx DVT - cont warfarin - INR ok # DM2 - on metformin (holding) - cont lispro SSI Subjective: back pain was better when he first awoke Objective: Vital Signs Temp Pulse Resp BP Pulse Ox 37.1 C 83 16 152/78 H 91 L 04/24/17 07:22 04/24/17 07:22 04/24/17 07:22 04/24/17 07:22 04/24/17 07:22 Laboratory Results 04/21/17 09:40 04/22/17 05:16 04/23/17 04/24/17 04/25/17 05:59 05:59 05:59 Output Total 1475 500 Balance -1475 -500 PT 24.9 SEC (12.0-15.0) H 04/24/17 05:21 INR 2.25 (0.83-1.16) H 04/24/17 05:21 - Physical Exam Constitutional: no apparent distress, appears nourished Cardiovascular: regular rate and rhythym, systolic murmur Respiratory: no respiratory distress, no rales or rhonchi, clear to auscultation Gastrointestinal: soft, non-tender abdomen, no palpable masses ICD10 Worksheet Patient Problems: Problems Problem Status Onset Sepsis Acute
[2017-04-24] MEDS ORDERED: HYDROmorphONE/DILAUDID 2 MG/ML INJ IVP PRN (15:29)
[2017-04-24] MEDS: WARFARIN SODIUM 5 MG TAB PO SCH (16:21)
[2017-04-24] MEDS: WARFARIN SODIUM 7.5 MG TAB PO SCH (18:14)
[2017-04-25] MEDS: ceFAZolin 2 GM/SWFI 2 GM/20 ML SYR IVP SCH ×2 (05:16→15:27)
[2017-04-25 05:28] LABS: PLATELET COUNT 214 10^3/uL (150-400)
[2017-04-25 05:49] LABS: INR 2.47 (0.83-1.16); PROTIME(PATIENT) 26.7 SEC (12.0-15.0)
[2017-04-25] MEDS: ACETAMINOPHEN 325 MG TAB PO PRN (06:16)
[2017-04-25 07:16] VITALS: BP 139/84; PULSE 92; TEMP 98.1; O2SAT 93
[2017-04-25] MEDS: INSULIN LISPRO 100 UNIT/ML SC SCH ×2 (07:31→11:59)
[2017-04-25] MEDS: PANTOPRAZOLE SODIUM 40 MG TAB PO SCH (07:31)
[2017-04-25] MEDS ORDERED: ALTEPLASE 2 MG VIAL IVP PRN (09:19)
--- NOTE | 2017-04-25 11:59 | PDIAF ---
- Diagnosis Diagnosis: MSSA AV endocarditis & L paraspinous phlegmon L3 and L4 OM/discitis Code Status: Full Code - Medication Management Discharge Medications: Medications to Continue on Transfer Acetaminophen [Tylenol ES 500 mg (*)] 500 mg PO Q6 PRN 04/19/17 [Last Taken Unknown] Cholecalciferol Vit D3 [Vitamin D3 (*)] 10,000 units PO DAILY 04/19/17 [Last Taken Unknown] Cyclobenzaprine [Flexeril 10 MG (*)] 10 mg PO HS PRN 04/19/17 [Last Taken ] Ibuprofen [Motrin (*)] 800 mg PO Q8 PRN 04/19/17 [Last Taken Unknown] Lisinopril [Zestril 5 mg (*)] 5 mg PO DAILY 04/19/17 [Last Taken Unknown] [place]-3 Fatty Acids [Fish Oil 1000 mg (*)] 1,000 mg PO DAILY 04/19/17 [Last Taken Unknown] Omeprazole 20 mg PO DAILY 04/19/17 [Last Taken Unknown] Warfarin Sodium [Coumadin 7.5MG (*)] 7.5 mg PO DAILY16 04/19/17 [Last Taken ] metFORMIN HCL [Metformin HCl] 1,000 mg PO HS 04/19/17 [Last Taken Unknown] 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 PICC Care - Routine: Yes - Orders Services needed: Home Care, Registered Nurse Home Care Face to Face: I certify that this patient was under my care and that I had the required [id number] encounter meeting the encounter requirements on the discharge day. My findings support the fact that the patient is homebound as defined in Home Care Face to Face Continued: CMS Chapter 7 Medicare Benefits Manual 30.1.1 , The condition of the patient is such that there exists a normal inability to leave home and consequently, leaving home would require a considerable and taxing effort. Isolation Type: None Diet Recommendation: no restrictions on diet - Labs/Radiology CBC w/diff Date: 04/27/17 (weekly Thursday) CMP Date: 04/27/17 (weekly Thursday) Call or Fax Lab and Imaging Results to: Dedra Finnegan MD [facility] at fax [phone] - Follow Up Care Current Providers and Referrals: Sabrina Oconnor [Primary Care Provider] - As per Instructions Dedra Finnegan MD [Medical Doctor] - 05/05/17 11:00 am Sandeep Molina MD [Medical Doctor] - (1-2 weeks, please call for an appointment)
--- NOTE | 2017-04-25 12:16 | PDIAF ---
- Diagnosis Diagnosis: MSSA AV endocarditis & L paraspinous phlegmon L3 and L4 OM/discitis Code Status: Full Code - Medication Management Discharge Medications: Medications to Continue on Transfer Acetaminophen [Tylenol ES 500 mg (*)] 500 mg PO Q6 PRN 04/19/17 [Last Taken Unknown] Cholecalciferol Vit D3 [Vitamin D3 (*)] 10,000 units PO DAILY 04/19/17 [Last Taken Unknown] Cyclobenzaprine [Flexeril 10 MG (*)] 10 mg PO HS PRN 04/19/17 [Last Taken ] Ibuprofen [Motrin (*)] 800 mg PO Q8 PRN 04/19/17 [Last Taken Unknown] Lisinopril [Zestril 5 mg (*)] 5 mg PO DAILY 04/19/17 [Last Taken Unknown] [place]-3 Fatty Acids [Fish Oil 1000 mg (*)] 1,000 mg PO DAILY 04/19/17 [Last Taken Unknown] Omeprazole 20 mg PO DAILY 04/19/17 [Last Taken Unknown] Warfarin Sodium [Coumadin 7.5MG (*)] 7.5 mg PO DAILY16 04/19/17 [Last Taken ] metFORMIN HCL [Metformin HCl] 1,000 mg PO HS 04/19/17 [Last Taken Unknown] De Icer Finisher Antibiotics: cefazolin 6gm IV continuous infusion [facility] Antibiotic Stop Date: 06/16/17 Discharge Medications: Refer to the Discharge Home Medication list for PRN reason. PICC Care - Routine: Yes - Orders Services needed: Home Care, Registered Nurse Home Care Face to Face: I certify that this patient was under my care and that I had the required [id number] encounter meeting the encounter requirements on the discharge day. My findings support the fact that the patient is homebound as defined in Home Care Face to Face Continued: CMS Chapter 7 Medicare Benefits Manual 30.1.1 , The condition of the patient is such that there exists a normal inability to leave home and consequently, leaving home would require a considerable and taxing effort. Isolation Type: None Diet Recommendation: no restrictions on diet - Labs/Radiology CBC w/diff Date: 04/27/17 (weekly Thursday) CMP Date: 04/27/17 (weekly Thursday) Creatinine Date: 04/27/17 (weekly Thursday - fax to Dr Oconnor) Call or Fax Lab and Imaging Results to: Dedra Finnegan MD [facility] at fax [phone]; - Follow Up Care Current Providers and Referrals: Sabrina Oconnor [Primary Care Provider] - As per Instructions Sandeep Molina MD [Medical Doctor] - (1-2 weeks, please call for an appointment) Dedra Finnegan MD [Medical Doctor] - 05/05/17 11:00 am
--- NOTE | 2017-04-25 12:20 | PDIAF ---
- Diagnosis Diagnosis: MSSA AV endocarditis & L paraspinous phlegmon L3 and L4 OM/discitis Code Status: Full Code - Medication Management Discharge Medications: Medications to Continue on Transfer Acetaminophen [Tylenol ES 500 mg (*)] 500 mg PO Q6 PRN 04/19/17 [Last Taken Unknown] Cholecalciferol Vit D3 [Vitamin D3 (*)] 10,000 units PO DAILY 04/19/17 [Last Taken Unknown] Cyclobenzaprine [Flexeril 10 MG (*)] 10 mg PO HS PRN 04/19/17 [Last Taken ] Lisinopril [Zestril 5 mg (*)] 5 mg PO DAILY 04/19/17 [Last Taken Unknown] [place]-3 Fatty Acids [Fish Oil 1000 mg (*)] 1,000 mg PO DAILY 04/19/17 [Last Taken Unknown] Omeprazole 20 mg PO DAILY 04/19/17 [Last Taken Unknown] Warfarin Sodium [Coumadin 7.5MG (*)] 7.5 mg PO DAILY16 04/19/17 [Last Taken ] metFORMIN HCL [Metformin HCl] 1,000 mg PO HS 04/19/17 [Last Taken Unknown] Medical Reception Antibiotics: cefazolin 6gm IV continuous infusion [facility] Antibiotic Stop Date: 06/16/17 Discharge Medications: Refer to the Discharge Home Medication list for PRN reason. PICC Care - Routine: Yes - Orders Services needed: Home Care, Registered Nurse Home Care Face to Face: I certify that this patient was under my care and that I had the required [id number]-[id number]-[id number] encounter meeting the encounter requirements on the discharge day. My findings support the fact that the patient is homebound as defined in Home Care Face to Face Continued: CMS Chapter 7 Medicare Benefits Manual 30.1.1 , The condition of the patient is such that there exists a normal inability to leave home and consequently, leaving home would require a considerable and taxing effort. Isolation Type: None Diet Recommendation: no restrictions on diet - Labs/Radiology CBC w/diff Date: 04/27/17 (weekly Thursday) CMP Date: 04/27/17 (weekly Thursday) Creatinine Date: 04/27/17 (weekly Thursday - fax to Dr Oconnor) Call or Fax Lab and Imaging Results to: Dedra Finnegan MD [facility] at fax [phone]; - Follow Up Care Current Providers and Referrals: Sabrina Oconnor [Primary Care Provider] - As per Instructions Sandeep Molina MD [Medical Doctor] - (1-2 weeks, please call for an appointment) Dedra Finnegan MD [Medical Doctor] - 05/05/17 11:00 am
--- NOTE | 2017-04-25 13:04 | GDS ---
[f rep st] DISCHARGE SUMMARY ALL DIAGNOSIS: 1. Methicillin-resistant Staphylococcus aureus bacteremia. 2. Severe sepsis with fever and leukocytosis due to the above. 3. L3-4 osteomyelitis with psoas phlegmon. 4. Aortic valve endocarditis. 5. History of deep venous thrombosis, on therapeutic warfarin. 6. Diabetes mellitus type 2, on metformin. HOSPITAL COURSE: 66-year-old man admitted with longstanding back pain. Found to have MSSA bacteremi a. Imaging revealed an L3-L4 osteomyelitis as well as psoas phlegmon. Echocardiogram showed vegetat ion likely consistent with aortic valve endocarditis. Seen by Infectious Disease as well as Neurosur adelita. Recommend 8 weeks of IV antibiotics with Ancef. This has been ordered. He will follow up melani Dr. Finnegan as well as Dr. Molina for outpatient management. The day of discharge, he is doing well. His white blood cell count is slightly elevated. However, this is somewhat expected. He has a history of DVTs. He is on therapeutic warfarin. His primary care physician follows his INR , he will have weekly INRs drawn while he is on IV antibiotics. It was 2.47 on the day of discharge. FOLLOWUP: 1. Dr. Finnegan, on 05/05/2017 at 11:[address] Molina in 1 to 2 weeks. BILLING: I spent more than 30 minutes on the day of discharge coordinating care. /[id number]/MODL
--- NOTE | 2017-04-25 14:10 | ASMTCMCOM ---
CM Note CM Note Notes: Patient medically ready to discharge home. [facility] and [facility] sent final interagency orders. Picc to be placed later today. CM available should need arise. Date Signed: 04/25/2017 02:10 PM Electronically Signed By:Kym Chaparro RN
[2017-04-25] MEDS: WARFARIN SODIUM 5 MG TAB PO SCH (15:26)
--- NOTE | 2017-04-26 11:17 | ASDISCHSUM ---
Discharge Information Plan Status:IV ABX/Infusion Medically Cleared to Leave:04/24/2017 Discharge Date:04/25/2017 03:59 PM CM D/C Disposition:Home Health Service ADT D/C Disposition:Home Health Service Projected Discharge Date:04/24/2017 12:00 AM Transportation at D/C:Family Discharge Delay Reason: Follow-Up Date:04/24/2017 12:00 AM Discharge Slot:2 - 12:01 pm - 18:00 pm Final Diagnosis:Severe sepsis, MSSA AV endocarditis, L3-4 discitis Placement Information Referral Type:*Home Health Care Services Referral ID:[id number] Provider Name:[facility] Address 1:[address] Address 2: City:[place] Selection Factors:Patient/Family Choice State:[place] Referral Type:Home Infusion Referral ID:[id number] Provider Name:[facility] [place] ([facility]) Address 1:[address] [facility] [address] Address 2: City:[place] Selection Factors:Patient/Family Choice State:[place] Patient Contact Information Contact Name:KELSEY Relationship: Address:[address] [place] [address] [place] City:[facility] Phone: [facility]/Zip Code:[place] [address] Email: Financial Information Financial Class:Medicare Advantage Plans Primary Plan Desc:FanKave Primary Plan Number:[id number] Secondary Plan Desc: Secondary Plan Number: Assessment Information [facility] CM Progress Note CM Note CM Note Notes: Pt presented to the ED for back pain, fever, difficulty walking, and confusion/AMS. Patient admitted for sepsis, encephelopathy Patient recently had a paraspinal mass removed on 04/03/17 here at [facility]. Patient lives with his Lisbet (pt's MDPOA) in [place]. Patient's PCP is Dr Sabrina Oconnor. Exact DC needs unknown, CM to follow. Date Signed: 04/19/2017 03:45 PM Electronically Signed By:Angelina Mak RN [facility] CM Progress Note CM Note CM Note Notes: Faxed patient onfo to [employer] to becker out the cost of receiving IV ABX at home vs coming into the infusion clinic. Date Signed: 04/21/2017 09:40 AM Electronically Signed By:Sue Hill LCSW [facility] CM Progress Note CM Note CM Note Notes: Ita here from [facility]. Patient's cost is $43.92/wk which will incl RN and supplies. Patient would like to have IV ABX at home. has ordered PT in the hospital. This CM asked Ita, to look for RN and PT to follow with HC at time of discharge. Date Signed: 04/21/2017 02:32 PM Electronically Signed By:Sue Hill LCSW [facility] CM Progress Note CM Note CM Note Notes: Received call from Casper at [facility], can accept pt for RN/PT. Pt will dc home likely tomorrow. DC Plan: Homecare + [facility] Date Signed: 04/22/2017 02:17 PM Electronically Signed By:Sharmila Sage RN [facility] CM Progress Note CM Note CM Note Notes: Spoke w/, pt not ready for dc, positive blood cultures, can discharge on Thursday at earliest. Lu[facility] notified. DC Plan: [facility] + [facility] Date Signed: 04/23/2017 04:13 PM Electronically Signed By:Sharmila Sage RN [facility] CM Progress Note CM Note CM Note Notes: Patient medically ready to discharge home. [facility] and [facility] sent final interagency orders. Picc to be placed later today. CM available should need arise. Date Signed: 04/25/2017 02:10 PM Electronically Signed By:Kym Chaparro RN Case Management Discharge Plan Note Case Management Discharge Discharge Order Complete? Answers: Yes Patient to Obtain Answers: Other Notes: Family and [facility] Transportation Arranged Answers: Family/Friends Transport will Pick (Date 04/25/2017 04:00 PM & Time) EMTALA Complete Answers: No Notes: N/A Case Management Transport Answers: No Notes: N/A Form Complete Faxed Final Orders Answers: Yes Notes: sent via [employer]; confirmed receipt w/ Luz at [facility] Agency/Facility Transfer Answers: Yes Notes: sent via Report Printed & Faxed to [employer]; confirmed Receiving Agency receipt w/ Luz at [facility] Family Notified Answers: Yes Notes: at bedside Discharge Comments Notes: Reviewed chart regarding discharge plan, pt's progress. Spoke w/ Dr. Hernandez and AJ Rea. Pt to discharge home w/ IV infusion services thru [facility] and home care w/ [facility]. Call placed to Luz w/ [facility] - per Luz, able to start services today (this evening). PICC placed late this afternoon. Luz coordinated / [facility] for RN services, also to begin this evening. Met w/ pt and pt's - confirmed address and phone number. Plan discussed, questions answered. [facility] and [facility] to arrive after 1800 for teaching and initial setup. business card provided w/ contact phone numbers. Confirmed all information w/ Luz; PICC report sent via [employer]. All orders previously faxed by AJ Todd, CM,. IM signed. Pt to follow up as directed. CM avail for any further issues or concerns. Discharge Plan: Home w/ [facility] and [facility] for home care/RN services Date Signed: 04/25/2017 04:16 PM Electronically Signed By:Divina Bal RN Intervention Information Intervention Type:*IM-Signed Date of Service:04/25/2017 04:08 PM Patient Type:Inpatient Staff Member:AJ Bal Taylor Hours: Discipline: Severity: Comment:
--- NOTE | 2017-04-26 11:20 | ASMTCMCOM ---
CM Note CM Note Notes: PICC report faxed to [employer] and [employer]. Spoke w/ Casper at [facility], confirmed HHC RN will meet pt at the house after 18:00. CM avail for any further issues or concerns. Date Signed: 04/26/2017 11:19 AM Electronically Signed By:Divina Bal RN
--- NOTE | 2017-04-26 11:21 | ASMTLACE ---
LACE Length of stay for Answers: 4-6 days current admission Acuity / Level of Answers: Yes Care: Did the patient have an inpatient admission? Comorbidities - select Answers: Diabetes (uncontrolled or all that apply controlled) # of Emergency department Answers: 1-2 visits in the last 6 months Score: 9 Date Signed: 04/26/2017 11:21 AM Electronically Signed By:Divina Bal RN
== END 2017-04-25 15:59 | disposition home health service (06) | DRG 871 ==
LOC: F2N 16:51 → F3E 04-21 22:35
PROVIDERS: ADMIT Hospitalist; ATTEND Hospitalist
PROC: B244ZZ4 Ultrasonography of Right Heart, Transesophageal (ICD-10-PCS; principal; 2017-04-20)
PROC: 02HV33Z Insertion of Infusion Device into Superior Vena Cava, Percutaneous Approach (ICD-10-PCS; 2017-04-25)
DX: A41.02 Sepsis due to Methicillin resistant Staphylococcus aureus (principal); K68.12 Psoas muscle abscess; M46.26 Osteomyelitis of vertebra, lumbar region; R65.20 Severe sepsis without septic shock; I35.8 Other nonrheumatic aortic valve disorders; E11.9 Type 2 diabetes mellitus without complications; I10 Essential (primary) hypertension; Z79.84 Long term (current) use of oral hypoglycemic drugs; Z86.718 Personal history of other venous thrombosis and embolism; Z79.01 Long term (current) use of anticoagulants
CPT/HCPCS: 82947-QW; 97116-GP; 97161-GP; A9585; C1751; G8978-GP-CI; G8979-GP-CI; J0461; J0690; J0692; J1815; J2543; J2704; J3370; Q9967

== ENCOUNTER → 2017-05-26 | Outpatient (CLI) | payer OTHER ==
[~2017-05-26] MED LIST: GADOBUTROL 10 ML VIAL IVP ONE
== END ==
LOC: FIMAGING 14:21
PROVIDERS: ATTEND Internal Medicine Infectious Disease
DX: M46.26 Osteomyelitis of vertebra, lumbar region (principal); M46.46 Discitis, unspecified, lumbar region; M48.061 Spinal stenosis, lumbar region without neurogenic claudication
CPT/HCPCS: 72158; A9585

== ENCOUNTER → 2017-06-25 | Outpatient (CLI) | payer OTHER | LOC: FIMAGING 12:11 | PROVIDERS: ATTEND Neurological Surgery | DX: M46.46 Discitis, unspecified, lumbar region (principal); R60.9 Edema, unspecified | CPT/HCPCS: 72158; A9585 ==

== ENCOUNTER 2017-06-27 20:26 | Inpatient (IN) | payer OTHER ==
[2017-06-27] MEDS ORDERED: HYDROmorphONE/DILAUDID 2 MG/ML INJ IVP ONE (22:13)
[2017-06-27] MEDS ORDERED: LIDOCAINE 4%/MENTHOL 1% PATCH TD ONE (22:13)
[2017-06-27] MEDS ORDERED: DIAZEPAM 5 MG/ML 1 ML SYR IVP ONE (22:13)
--- NOTE | 2017-06-27 22:19 | EDPHY ---
H & P Stated Complaint: BACK PAIN/HAVING TLIF TOMORROW Time Seen by Provider: 06/27/17 21:25 HPI/ROS: HPI The patient presents with lower back pain which has been present for the last 2 days and getting progressively worse. The patient has a history of L3-L4 osteomyelitis with psoas phlegmon and he is currently receiving Ancef for via PICC line. He had an MRI performed 2 days ago and he believes lying in the MRI tube has exacerbated his back pain. His MRI demonstrates improved diskitis at L3-L4 and improved psoas abscess. He describes a spasm tight back pain greater on the right than the left. This is been constant and he has been bed-bound because of it. He can use a walker sometimes to maneuver around the house though this is challenging. He has been using a urinal in his bed. He is concerned that he may fall. He says he feels weak but he is not sure if the pain is causing his weakness. He does not have any bowel or bladder changes. He is taking tramadol 100 mg q.8 hours and Tylenol 1000 mg q.6 hours. REVIEW OF SYSTEMS Constitutional: No fever, no chills. Eyes: No discharge. ENT: No sore throat. Cardiovascular: No chest pain, no palpitations. Respiratory: No cough, no shortness of breath. Gastrointestinal: No abdominal pain, no vomiting. Genitourinary: No hematuria. Musculoskeletal: Positive for back pain. Skin: No rashes. Neurological: No headache. PMHx: Aortic valve endocarditis with history of MRSA bacteremia causing sepsis in April, currently receiving Ancef, history of diabetes, history of DVT on Coumadin Soc Hx: Lives at home with his PHYSICAL General Appearance: Alert, no distress Eyes: Pupils equal and round no pallor or injection ENT, Mouth: Mucous membranes moist Respiratory: There are no retractions, lungs are clear to auscultation Cardiovascular: Regular rate and rhythm Gastrointestinal: Abdomen is soft and non-tender, no masses, bowel sounds normal Back: There is tenderness at the midline of L3-L4 with paraspinal tenderness bilaterally on the right greater than the left Neurological: A&O, he does have 5/5 strength of his lower extremities which is symmetric though is limited by pain, sensation is intact to light touch Skin: Warm and dry, no rashes Musculoskeletal: Neck is supple non tender Extremities: symmetrical, full range of motion Psychiatric: Patient is oriented X 3, there is no agitation Source: Patient Exam Limitations: No limitations - Personal History Current Tetanus Diphtheria and Acellular Pertussis (TDAP): No - Medical/Surgical History Hx Asthma: No Hx Chronic Respiratory Disease: No Hx Diabetes: Yes Hx Cardiac Disease: Yes Hx Renal Disease: No Hx Cirrhosis: No Hx Alcoholism: No Hx HIV/AIDS: No Hx Splenectomy or Spleen Trauma: No Other PMH: DM2, CHRONIC BACK PAIN, BLOOD CLOTS, SEPSIS BACK APRIL 2017, ENDOCARDITIS APR 2017 - Social History Smoking Status: Former smoker Constitutional: Initial Vital Signs Temperature (C) 36.3 C 06/27/17 20:47 Heart Rate 82 06/27/17 20:47 Respiratory Rate 16 06/27/17 20:47 Blood Pressure 131/50 H 06/27/17 20:47 O2 Sat (%) 94 06/27/17 20:47 O2 Delivery Mode Room Air Allergies/Adverse Reactions: No Known Allergies Allergy (Verified 06/16/17 14:01) Home Medications: Medication Instructions Recorded Acetaminophen [Tylenol ES 500 mg 500 mg PO Q6 PRN 04/19/17 (*)] Cholecalciferol Vit D3 [Vitamin D3 10,000 units PO DAILY 04/19/17 (*)] Lisinopril [Zestril 5 mg (*)] 5 mg PO DAILY 04/19/17 [place]-3 Fatty Acids [Fish Oil 1000 1,000 mg PO DAILY 04/19/17 mg (*)] Omeprazole 20 mg PO DAILY 04/19/17 Warfarin Sodium [Coumadin 7.5MG 7.5 mg PO DAILY16 04/19/17 (*)] metFORMIN HCL [Metformin HCl] 500 mg PO BID 04/19/17 Tamsulosin HCl [Flomax 0.4 MG (*)] 0.4 mg PO DAILY 06/16/17 traMADol [Ultram 50 mg (*)] 100 mg PO TID 06/16/17 Medical Decision Making Differential Diagnosis: This is a 66-year-old male with history of diabetes, DVT on Coumadin currently, chronic lower back pain, diagnosis of MRSA bacteremia with aortic valve endocarditis and L3-L4 diskitis with psoas phlegmon diagnosed in April of 2017 who now presents with worsening lower back pain for the last 2 days after having an MRI 2 days ago. He is taking maximum pain meds at home without improvement in his symptoms and was instructed to come to the emergency department. In the emergency department, he was given Dilaudid and Valium with improvement in his symptoms. His labs were checked and were unremarkable. He had ongoing pain when he tried to move in any direction. Because of this, he states he would like to be admitted to the hospital. He is concerned that he may fall at home. I consulted with the neurosurgical PA speech correction consultant that spoke with the patient earlier in the day Prashant Marquez. He agrees for admission and I have ordered a bed under Dr. Molina. Given that he has not sustained any new trauma and had an MRI 2 days ago, I do not feel that any imaging is warranted currently. I suspect his pain is from muscle spasms, exacerbated by lying in the MRI machine. - Data Points Laboratory Results: Laboratory Results 06/27/17 22:30 06/27/17 22:30 06/27/17 06/27/17 06/27/17 22:30 22:30 22:30 WBC 8.87 10^3/uL 10^3/uL (3.80-9.50) RBC 3.87 10^6/uL L 10^6/uL (4.40-6.38) Hgb 11.3 g/dL L g/dL (13.7-17.5) Hct 34.4 % L % (40.0-51.0) MCV 88.9 fL fL (81.5-99.8) MCH 29.2 pg pg (27.9-34.1) MCHC 32.8 g/dL g/dL (32.4-36.7) RDW 14.5 % % (11.5-15.2) Plt Count 142 10^3/uL L 10^3/uL (150-400) MPV 11.3 fL fL (8.7-11.7) Neut % (Auto) 62.3 % % (39.3-74.2) Lymph % (Auto) 30.3 % % (15.0-45.0) [place] % (Auto) 6.0 % % (4.5-13.0) Eos % (Auto) 0.8 % % (0.6-7.6) Baso % (Auto) 0.3 % % (0.3-1.7) Nucleat RBC Rel Count 0.0 % % (0.0-0.2) Absolute Neuts (auto) 5.52 10^3/uL 10^3/uL (1.70-6.50) Absolute Lymphs (auto) 2.69 10^3/uL 10^3/uL (1.00-3.00) Absolute Monos (auto) 0.53 10^3/uL 10^3/uL (0.30-0.80) Absolute Eos (auto) 0.07 10^3/uL 10^3/uL (0.03-0.40) Absolute Basos (auto) 0.03 10^3/uL 10^3/uL (0.02-0.10) Absolute Nucleated RBC 0.00 10^3/uL 10^3/uL (0-0.01) Immature Gran % 0.3 % % (0.0-1.1) Immature Gran # 0.03 10^3/uL 10^3/uL (0.00-0.10) PT 14.4 SEC SEC (12.0-15.0) INR 1.10 (0.83-1.16) Sodium 139 mEq/L mEq/L (135-145) Potassium 4.5 mEq/L mEq/L (3.5-5.2) Chloride 107 mEq/L mEq/L (97-110) Carbon Dioxide 22 mEq/l mEq/l (22-31) Anion Gap 10 mEq/L mEq/L (8-16) BUN 21 mg/dL mg/dL (7-23) Creatinine 0.8 mg/dL mg/dL (0.7-1.3) Estimated GFR > 60 Glucose 104 mg/dL H mg/dL (70-100) Calcium 10.4 mg/dL mg/dL (8.5-10.4) Total Bilirubin 0.3 mg/dL mg/dL (0.1-1.4) AST 33 IU/L IU/L (17-59) ALT 31 IU/L IU/L (21-72) Alkaline Phosphatase 55 IU/L IU/L (38-126) Total Protein 7.2 g/dL g/dL (6.3-8.2) Albumin 4.2 g/dL g/dL (3.5-5.0) Medications Given: Methocarbamol (Robaxin) 750 mg PO Q6 PRN PRN Reason: SPASMS Stop: 12/25/17 00:44 Last Admin: 06/28/17 07:19 Dose: 750 mg Oxycodone HCl (Oxycodone Ir) 5 - 10 mg PO Q4 PRN PRN Reason: Pain Stop: 07/08/17 00:44 Last Admin: 06/28/17 04:55 Dose: 10 mg Discontinued Medications Diazepam (Valium) 5 mg IVP EDNOW ONE Stop: 06/27/17 22:14 Last Admin: 06/27/17 22:34 Dose: 5 mg Hydromorphone HCl (Dilaudid) 0.5 mg IVP EDNOW ONE Stop: 06/27/17 22:14 Last Admin: 06/27/17 22:34 Dose: 0.5 mg Miscellaneous Medication (Icy Hot Lidocaine/Menthol 4%/1% Patch) 1 patch TD EDNOW ONE Stop: 06/27/17 22:14 Last Admin: 06/27/17 22:34 Dose: 1 patch Departure - Departure Disposition: [facility] Acute Clinical Impression: Muscle spasm of back, Discitis of lumbar region Condition: Fair
[2017-06-27 22:44] LABS: PLATELET COUNT 142 10^3/uL (150-400)
[2017-06-27 22:52] LABS: INR 1.1 (0.83-1.16); PROTIME(PATIENT) 14.4 SEC (12.0-15.0)
[2017-06-28] MEDS: oxyCODONE IR 5 MG TAB PO PRN ×6 (01:05→22:00)
[2017-06-28] MEDS: METHOCARBAMOL 750 MG TAB PO PRN ×4 (01:05→19:53)
[2017-06-28] MEDS ORDERED: ENOXAPARIN 100 MG/ML SYR SC ONE (12:00)
--- NOTE | 2017-06-28 12:37 | ASMTCMCOM ---
CM Note CM Note Notes: Patient admitted with intractable back pain. He is scheduled to have surgery tomorrow with Dr Molina. He requested to speak to Case Management about SNF upon discharge. We discussed the process, and I suggested some facilities close to his home in [place]. I sent referrals to [facility], [facility], and [facility] He will talk with his , and we will revisit the conversation after his surgery. Date Signed: 06/28/2017 12:37 PM Electronically Signed By:Hermelinda Whiting RN
[2017-06-28 12:43] LABS: INR 1.03 (0.83-1.16); PROTIME(PATIENT) 13.7 SEC (12.0-15.0)
[2017-06-28] MEDS ORDERED: D50W 25 GM/50 ML SYR IVP PRN (13:13)
--- NOTE | 2017-06-28 13:17 | GHP ---
[f rep st] HISTORY AND PHYSICAL DATE OF ADMISSION: 06/27/2017 ADMISSION DIAGNOSIS: L3-4 osteomyelitis/diskitis. HISTORY OF PRESENT ILLNESS: The patient is a pleasant 66-year-old male with known history of L3-4 osteomyelitis and associated back pain and left leg pain. The patient has a history of MSSA bacteremia, with aortic valve endocarditis, and has been treated with IV cefazolin for the past [address] Arcelia Finnegan from Infectious Disease. The patient was slated for surgery on 06/29/2017, with Dr. Molina at [facility] but contacted us over the weekend complaining of increasing, uncontrolled low back pain and difficulty with mobility and concern for falling at home. Given the fact the patient's symptoms were worsening and his pain was uncontrolled at home, he was directed to the [facility] Emergency Department for evaluation and subsequently admitted for pain control. Currently, the patient is lying in bed and is comfortable, but complains of ongoing low back pain and some left leg pain, particularly with movement. He also has a history of lower extremity DVT and has been on Coumadin since 2011. The patient is currently on a Lovenox bridge and discontinued his Coumadin several days ago. He also has a history of type 2 diabetes. He denies any recent fevers, chills, or sweats at home but has had increasing back spasms, again that worsen with activity. ALLERGIES: No known drug allergies. CURRENT MEDICATIONS: Lovenox 100 mg subcu b.i.d., lisinopril 5 mg p.o. daily, metformin 500 mg p.o. b.i.d. with meals, omega 3 fish oil 1000 mg p.o. daily, tramadol 100 mg p.o. t.i.d., Coumadin 7.5 mg p.o. daily, omeprazole 20 mg capsules p.o. daily, tamsulosin 0.4 mg p.o. daily. PHYSICAL EXAM: GENERAL: Pleasant, healthy-appearing, obese 66-year-old male in no apparent distress. HEAD, EYES, EARS, NOSE, AND THROAT: Within normal limits. EXTREMITIES: Within normal limits. NEUROLOGIC: Patient is awake, alert, oriented x4. Cranial nerves 2-12 are intact to gross examination. Speech is fluent. Tongue is midline. Spinal accessory muscles are intact. He has equal and symmetric strength of the bilateral upper and lower extremities in all muscle groups with normal sensation throughout all dermatomal distributions of the bilateral upper and lower extremities. PAST MEDICAL HISTORY: 1. Type 2 diabetes. 2. L3-4 osteomyelitis. 3. Hypertension. 4. Aortic stenosis and endocarditis. 5. Chronic lower extremity DVTs diagnosed in 2011, on Coumadin. PAST SURGICAL HISTORY: 1. Vasectomy in 1969. 2. Left quadriceps muscle repair in March of 2002. FAMILY HISTORY: Noncontributory. REVIEW OF SYSTEMS: Negative, other than mentioned in the HPI. IMPRESSION: This is a 66-year-old male with L3-4 osteomyelitis, diskitis, and ongoing back pain that was uncontrolled at home prior to his surgery tomorrow. The patient has been admitted for pain control prior to surgery. He has no neurologic deficits and no new neurologic changes since he was last seen by Dr. Molina on 06/25/2017. PLAN: At this time, the patient will be medically optimized for surgery. We will ask the hospitalist team, who has been consulted, to assist with his medical issues preoperatively. Dr. Covington from Infectious Disease has been notified of the patient's inpatient status, and the recommendation is to continue his current IV antibiotic through his PICC line just like he has been getting at home. She will notify Dr. Finnegan of the patient's inpatient status as well. The patient is scheduled for an L3-[address] Molina at approximately 10 a.m. He was given 1 dose of 100 mg SQ Lovenox today at noon, and he will get no further doses of this. He will be kept n.p.o. at midnight in preparation for surgery tomorrow. His surgical consents are on the chart. All this information was discussed with Dr. Molina today who will see the patient today as well. /[id number]/MODL MTDD
--- NOTE | 2017-06-28 13:42 | GCON ---
[f rep st] CONSULTATION DATE OF CONSULTATION: 06/28/2017 REASON FOR CONSULTATION: I was asked by Dr. Molina to see this patient in regard to his medical issues. HISTORY OF PRESENT ILLNESS: This is a 66-year-old man who was admitted here in April for MSSA bacteremia, L3-4 diskitis as well as endocarditis. He was treated with Ancef at home. He has had worsening back pain which he describes as severe pain shooting down the right leg. He had an outpatient MRI which was done 3 days prior to today which actually showed improvement in his diskitis. He believes that lying in the MRI exacerbated his pain as over the past few days it has gotten severe causing him to present to the emergency department. He has had no weakness or numbness in his legs. He has no change in his urinary or bowel habits. He actually had plans for outpatient back surgery tomorrow. PAST MEDICAL/SURGICAL HISTORY: 1. Methicillin sensitive Staphylococcus aureus bacteremia, diskitis, endocarditis as above. 2. Diabetes mellitus type 2. 3. Deep venous thrombosis on anticoagulation. 4. Chronic back pain. MEDICATIONS: Please see medication reconciliation. ALLERGIES: No known drug allergies. FAMILY HISTORY: Reviewed and noncontributory. SOCIAL HISTORY: He is . He denies any significant alcohol use. He has never smoked. He has 2 children. REVIEW OF SYSTEMS: 10-point review of systems is conducted and is negative except per HPI. PHYSICAL EXAMINATION: VITAL SIGNS: Blood pressure 138/58, heart rate 74, respiration rate 16, sat 96% on 2 L, temperature 36.6/ GENERAL: The patient os a pleasant man who looks quite uncomfortable sitting in a chair. HEENT: Shows him to be normocephalic, atraumatic. CARDIOVASCULAR: Regular rate and rhythm. He has a 2/6 crescendo decrescendo systolic murmur. PULMONARY: Exam shows lungs clear to auscultation bilaterally. ABDOMEN: Soft , nontender, nondistended. SKIN: Exam shows no rash. : No Morton. NEUROLOGIC: Shows him to be alert and oriented x3. Walks with a limping gait. PSYCHIATRIC: Exam shows normal mood and affect. LABORATORY: Hemoglobin is 10.8. INR is 1.0. Basic metabolic panel is unremarkable. DATA: 1. I discussed with Dr. Molina at bedside. 2. I reviewed his lumbar spine MRI, findings summarized in HPI. IMPRESSION/PLAN: 1. Intolerable back pain due to L3-4 diskitis: Plan for debridement tomorrow, this will be done by Dr. Molina. He will be n.p.o. after midnight. He has been bridging on Lovenox, he will not get a dose tonight. 2. Methicillin sensitive Staphylococcus aureus bacteremia, diskitis, endocarditis: He has completed about 8 weeks of antibiotics. He is on Ancef. Infectious Disease will follow peripherally and be available as needed (I discussed with Dr Covington). Continue Ancef 2g IV Q8. Ongoing plan for antibiotics will likely depend on operative findings and culture results. 3. Diabetes mellitus type 2: He is holding his metformin. For now, will place him on a very low-dose sliding scale and follow his glucoses. 4. History of deep venous thrombosis: He is chronically on warfarin, he has been bridging on Lovenox. His INR is 1.03 today. We will appropriately hold anticoagulation in the setting of lumbar spine surgery, would like to start at least prophylactic dose Lovenox as soon as possible postoperatively. Will need to discuss this with Neurosurgery. 5. Hypertension: Holding his lisinopril preop. 6. Back pain: Currently has Robaxin, oxycodone as well as IV morphine ordered. He has a lidocaine patch as well. We will follow this closely perioperatively. Than you for involving Hospital Medicine in the care of this patient. We will continue to follow. /[id number]/MODL MTDD
--- NOTE | 2017-06-28 13:52 | PDMN ---
Medical Necessity Medical necessity: C/M review: Patient meets INPT criteria under MCG M-600 Osteomyelitis, M-63 Back pain: Acute and persistent - L3-L4 osteomyelitis, acute and persistent worsening of uncontrolled low back pain / left leg pain, difficulty with mobility and concern with falling at home, worsening symptoms, requiring IV Dilaudid in ED, planned Infectious disease consult, Hospitalist consult, planned 06/29/2017 surgery - L3-L4 TLIF (Inpatient per Medicare guidelines), 06/28/2017 Lovenox x 1 dose then no further doses to bridge preop anticoagulation, ongoing preop IV Cefazolin Q 8 hrs., pain management - meds: oral Robaxin, Oxycodone, IV Morphine as needed, comorbid history of MSSA bacteremia with aortic valve endocarditis treated with IV Cefazolin for the past six weeks, Type 2 diabetes, L3-L4 osteomyelitis, hypertension, chronic lower extremity DVT diagnosed in 2011 treated with chronic Coumadin, PICC line present on admission. PA anticipates > 2 MN LOS for ongoing med nec for eval and TX of above. Patient is Medicare Advantage which follows guidelines [facility] puts forth.
[2017-06-28] MEDS: ceFAZolin 2 GM/SWFI 2 GM/20 ML SYR IVP SCH ×2 (13:56→22:01)
--- NOTE | 2017-06-28 14:14 | PCMIDPN ---
Assessment/Plan: 1. History of aortic valve endocarditis, lumbar diskitis and bacteremia secondary to MSSA: Patient is followed primarily by my colleague, Dr. Dedra Finnegan. She will be back on Thursday. For now, I have asked pharmacy to help me dose his cefazolin every 8 hr while he is here, and stop the continuous infusion pump. Infectious Disease will follow peripherally today and tomorrow, and I will notify my colleague that the patient is in house. Continue cefazolin as outlined above. Please feel free to call with any issues during that time. Case discussed with Dr. Jose Alejandro Hernandez. Subjective: Patient was admitted briefly secondary to back pain that he felt was brought on by receiving an MRI. He will likely be here another 24-48 hours. He is afebrile, and safety labs are normal. Continuous infusion Ancef has been converted to q.8 hours dosing, as we do not have the logistics to continue continuous infusion while he is in-house. Objective: Vital Signs Temp Pulse Resp BP Pulse Ox 36.6 C 74 16 138/58 H 96 06/28/17 12:00 06/28/17 12:00 06/28/17 12:00 06/28/17 12:00 06/28/17 12:00 Laboratory Results 06/28/17 12:22 06/28/17 12:22 06/27/17 06/28/17 06/29/17 05:59 05:59 05:59 Intake Total 500 1850 Output Total 600 1575 Balance -100 275 ICD10 Worksheet Patient Problems: Problems Problem Status Onset Discitis of lumbar region Acute Muscle spasm of back Acute Sepsis Acute
[2017-06-28] MEDS: TAMSULOSIN HCL 0.4 MG CAP PO SCH (16:29)
[2017-06-28] MEDS: INSULIN LISPRO 100 UNIT/ML SC SCH (17:45)
[2017-06-28] MEDS: PATCH REMOVAL 1 EA PATCH TD SCH (22:33)
[2017-06-28] MEDS ORDERED: NS W/ 20 KCl/L 1,000 ML IV SCH (23:55)
[2017-06-29] MEDS: oxyCODONE IR 5 MG TAB PO PRN ×5 (02:12→21:42)
[2017-06-29] MEDS: METHOCARBAMOL 750 MG TAB PO PRN ×3 (02:12→17:59)
[2017-06-29] MEDS: ceFAZolin 2 GM/SWFI 2 GM/20 ML SYR IVP SCH ×3 (06:12→21:41)
[2017-06-29] MEDS: POTASSIUM Cl (KCl) 20 MEQ in NS 1,000 ML IV SCH ×2 (06:13→20:05)
[2017-06-29] MEDS ORDERED: BUPIVACAINE 0.25% 30 ML SDV ONE (07:43)
[2017-06-29] MEDS ORDERED: THROMBIN (BOVINE) 5,000 UNIT VIAL TP ONE (07:43)
[2017-06-29] MEDS ORDERED: BACITRACIN 50,000 UNITS/10 ML SYR IRR ONE (07:44)
--- NOTE | 2017-06-29 08:01 | NEUSURGPN ---
Assessment/Plan: Assessment: 66 yo male with history of discitis, admitted for pain control prior to surgery. -To OR later this morning for MIS L3/4 TLIF -Preop orders in -On Ancef currently -ID following- appreciated -DVT prophy: TEDS, SCD, Lovenox restarts tomorrow -Consents signed -Discussed with Dr. Molina O: NAD, VSS Alert, awake, CN II-XII grossly intact PERRLA BLE 5/5 Sensation intact to lt touch S: No changes, ready for surgery later today. Left leg pain worse than right. NO weakness. - Physician Discussed Patient with : [facility] Physical Exam - Vitals, I&O, Labs I and O 06/28/17 06/29/17 06/30/17 05:59 05:59 05:59 Intake Total 500 4450 Output Total 600 3500 Balance -100 950 Weight 102.512 kg Intake: Oral (ml) 500 4450 Output: Urine (ml) 600 3500 Urinal 600 3500 Other: Intake Quantity Yes Yes Sufficient Number of Voids Toilet 0 Urinal 2 Number of Stools Toilet 1 Vital Signs Temp Pulse Resp BP Pulse Ox 36.6 C 78 16 142/69 H 95 06/29/17 07:48 06/29/17 07:48 06/29/17 07:48 06/29/17 07:48 06/29/17 07:48 Laboratory Results 06/28/17 12:22 06/28/17 12:22 ICD10 Worksheet Patient Problems: Problems Problem Status Onset Discitis of lumbar region Acute Muscle spasm of back Acute Sepsis Acute
[2017-06-29] MEDS: PANTOPRAZOLE SODIUM 40 MG TAB PO SCH (08:21)
[2017-06-29] MEDS: TAMSULOSIN HCL 0.4 MG CAP PO SCH (08:21)
[2017-06-29] MEDS: INSULIN LISPRO 100 UNIT/ML SC SCH ×3 (08:48→18:13)
[2017-06-29] MEDS: CHOLECALCIFEROL VIT D3 1,000 UNITS TAB PO SCH (08:48)
[2017-06-29] MEDS ORDERED: NON-FORMULARY NEW DRUG (Omeprazole [Omeprazole] 20 MG) PO SCH (09:00)
[2017-06-29] MEDS ORDERED: LR 1,000 ML IV ONE (11:05)
[2017-06-29] MEDS ORDERED: MIDAZOLAM 2 MG/2 ML VIAL IVP ONE (11:55)
--- NOTE | 2017-06-29 11:58 | PDANEPAE ---
ANE History of Present Illness 66 yo with HNP L3-4 ANE Past Medical History - Cardiovascular History Hx Hypertension: Yes Hx Arrhythmias: No Hx Chest Pain: No Hx Coronary Artery / Peripheral Vascular Disease: No Hx CHF / Valvular Disease: No Hx Palpitations: No Cardiovascular History Comment: LLE DVT due to "scared vessels"/vascular insuficiency. Endocarditis involving aortic valve - Pulmonary History Hx COPD: No Hx Asthma/Reactive Airway Disease: No Hx Recent Upper Respiratory Infection: No Hx Oxygen in Use at Home: No Hx Sleep Apnea: No Sleep Apnea Screening Result - Last Documented: Positive - Neurologic History Hx Cerebrovascular Accident: No Hx Seizures: No Hx Dementia: No - Endocrine History Hx Diabetes: Yes Endocrine History Comment: Type 2 DM - Renal History Hx Renal Disorders: No - Liver History Hx Hepatic Disorders: No - Neurological & Psychiatric Hx Hx Neurological and Psychiatric Disorders: Yes Neurological / Psychiatric History Comment: depression - Cancer History Hx Cancer: No - Congenital Disorder History Hx Congenital Disorders: No - GI History Hx Gastrointestinal Disorders: Yes Gastrointestinal History Comment: GERD; - Other Health History Other Health History: osteomylitis to L3/4. Infection MSSA. cefazolin 6mg/ 24ml ns @10ml's/hr continuously - Chronic Pain History Chronic Pain: Yes (left sciatic pain) - Surgical History Prior Surgeries: L Quad repair; LLE DVT w/ treatment x 2 w/ last one in 2012; T& A; wisdom teeth; L wrist fx w/ surgical repair; ANE Review of Systems Review of systems is: negative Review of Systems: ANE Patient History - Allergies Allergies/Adverse Reactions: No Known Allergies Allergy (Verified 06/16/17 14:01) - Home Medications Home Medications: Acetaminophen [Tylenol ES 500 mg (*)] 500 mg PO Q6 PRN 04/19/17 [Last Taken Unknown] Cholecalciferol Vit D3 [Vitamin D3 (*)] 10,000 units PO DAILY 04/19/17 [Last Taken 06/21/17] Lisinopril [Zestril 5 mg (*)] 5 mg PO DAILY 04/19/17 [Last Taken 06/27/17] [place]-3 Fatty Acids [Fish Oil 1000 mg (*)] 1,000 mg PO DAILY 04/19/17 [Last Taken Unknown] Omeprazole 20 mg PO DAILY 04/19/17 [Last Taken 06/27/17] Warfarin Sodium [Coumadin 7.5MG (*)] 7.5 mg PO DAILY 04/19/17 [Last Taken ] metFORMIN HCL [Metformin HCl] 500 mg PO BIDMEAL 04/19/17 [Last Taken 06/27/17] Tamsulosin HCl [Flomax 0.4 MG (*)] 0.4 mg PO DAILY 06/16/17 [Last Taken 06/27/17 ] traMADol [Ultram 50 mg (*)] 100 mg PO TID 06/16/17 [Last Taken 06/27/17] Cefazolin 10mg/H Cont.Infusion 0 mg IV CONT 06/28/17 [Last Taken 06/28/17] Enoxaparin [Lovenox 100 MG (*)] 100 mg SQ Q12H 06/28/17 [Last Taken 06/27/17] - NPO status NPO Status: no food or drink >8 hours NPO Since - Liquids (Date): 06/29/17 NPO Since - Liquids (Time): 06:00 NPO Since - Solids (Date): 06/29/17 NPO Since - Solids (Time): 00:01 - Anes Hx Anes Hx: no prior problems - Smoking Hx Smoking Status: Former smoker - Family Anes Hx Family Hx Anesthesia Complications: NONE ANE Labs/Vital Signs - Labs Result Diagrams: 06/28/17 12:22 06/28/17 12:22 - Vital Signs Blood Pressure: 113/52 Heart Rate: 75 Respiratory Rate: 16 O2 Sat (%): 98 Height: 177.8 cm Weight: 105.6 kg ANE Physical Exam - Airway Neck exam: FROM Mallampati Score: Class 2 Mouth exam: normal dental/mouth exam - Pulmonary Pulmonary: no respiratory distress - Cardiovascular Cardiovascular: regular rate and rhythym - ASA Status ASA Status: II ANE Anesthesia Plan Anesthesia Plan: general endotracheal anesthesia
[2017-06-29] MEDS ORDERED: fentaNYL 100 MCG/2 ML INJ ONE ×2 (12:33→15:58)
[2017-06-29] MEDS ORDERED: PROPOFOL/EMULSION 500 MG/50 ML BOTTLE IV ONE (12:34)
[2017-06-29] MEDS ORDERED: REMIFENTANIL HCL 1 MG VIAL ONE (12:34)
[2017-06-29] MEDS ORDERED: KETAMINE 200 MG/20 ML VIAL ONE (12:34)
[2017-06-29] MEDS ORDERED: PROPOFOL 200 MG/20 ML VIAL ONE (12:34)
[2017-06-29] MEDS ORDERED: ROCURONIUM 50 MG/5 ML VIAL ONE (12:38)
[2017-06-29] MEDS ORDERED: LIDOCAINE 2% 5 ML SDV ONE (12:38)
[2017-06-29] MEDS ORDERED: VANCOMYCIN 1 GM VIAL ONE (13:57)
[2017-06-29] MEDS ORDERED: ONDANSETRON 4 MG/2 ML VIAL IVP PRN ×2 (15:52→16:09)
[2017-06-29] MEDS ORDERED: PROMETHAZINE HCL 25 MG/ML INJ IVP PRN ×2 (15:52→16:09)
[2017-06-29] MEDS ORDERED: NALOXONE HCL 0.4 MG/ML INJ IVP PRN (15:52)
[2017-06-29] MEDS ORDERED: HYDROmorphONE/DILAUDID 2 MG/ML INJ ONE (15:58)
--- NOTE | 2017-06-29 16:01 | NEUSURGPN ---
Assessment/Plan: S: Patient in PACU. Still waking up from surgery O: NAD, VSS PERRL, EOMI CN II-XII grossly intact BUE/BLE 5/5= Sensation intact to lt touch Incisions X2 clean, dry, dressed A: 66 yo male with hx of discitis sp L3/4 TLIF P: -Admit to med/surg -Optimize pain management -Postop x-rays in am -Cultures intraop pending -Infectious disease onboard-appreciate their ongoing guidance on abx treatment -DVT: TEDs, SCD, lovenox to start tomorrow -Activity as tolerated -PT/OT - Physician Discussed Patient with : Tracy Patient Seen by : Tracy Neurosurgery Physical Exam - Vitals, I&O, Labs I and O 06/28/17 06/29/17 06/30/17 05:59 05:59 05:59 Intake Total 500 4450 Output Total 600 3500 300 Balance -100 950 -300 Weight 102.512 kg 105.6 kg Intake: Oral (ml) 500 4450 Output: Urine (ml) 600 3500 300 Urinal 600 3500 300 Other: Intake Quantity Yes Yes Sufficient Number of Voids Toilet 0 Urinal 2 1 Number of Stools Toilet 1 Microbiology 06/29/17 14:00 Gram Stain - Final Vertebral Disc 06/29/17 14:00 Gram Stain - Final Vertebral Disc Vital Signs Temp Pulse Resp BP Pulse Ox 37.1 C 75 16 113/52 L 98 06/29/17 10:16 06/29/17 11:58 06/29/17 11:58 06/29/17 11:58 06/29/17 11:58 Laboratory Results 06/28/17 12:22 06/28/17 12:22 ICD10 Worksheet Patient Problems: Problems Problem Status Onset Discitis of lumbar region Acute Muscle spasm of back Acute Sepsis Acute
[2017-06-29] MEDS: fentaNYL 100 MCG/2 ML INJ IVP PRN ×2 (16:03→16:15)
[2017-06-29] MEDS: HYDROmorphONE/DILAUDID 2 MG/ML INJ IVP PRN ×3 (16:03→16:35)
--- NOTE | 2017-06-29 16:03 | POSTOPPROG ---
Post Op Note Date of Operation: 06/29/17 Surgeon: Sandeep Molina Image Editor: Miguelina Reese Anesthesia: GET(General Endotracheal) Pre-op Diagnosis: L3/4 discitis Post-op Diagnosis: same Procedure: L3/4 Minimally inavasive TLIF Inf/Abcess present in the surg proc area at time of surgery?: No Depth: Organ Space EBL: 25cc
[2017-06-29] MEDS ORDERED: ONDANSETRON DISINTEGRATING 4 MG TAB PO PRN (16:09)
[2017-06-29] MEDS ORDERED: HYDROmorphone HCL/NS 0.5 MG/ML SYR IVP PRN (16:09)
[2017-06-29] MEDS ORDERED: LACTULOSE 20 GM/30 ML UDCUP PO PRN (16:09)
[2017-06-29] MEDS ORDERED: BISACODYL 10 MG SUPP PR PRN (16:09)
[2017-06-29] MEDS ORDERED: MAGNESIUM HYDROXIDE 30 ML UDCUP PO PRN (16:09)
[2017-06-29] MEDS ORDERED: diphenhydrAMINE 25 MG CAP PO PRN (16:09)
--- NOTE | 2017-06-29 16:52 | GOP ---
[f rep st] OPERATIVE REPORT DATE OF OPERATION: 06/29/2017 SURGEON: Sandeep Molina MD NEUROSURGEON: Sandeep Molina MD. COMPUTER PERIPHERAL EQUIPMENT OPERATOR: SUZANNE Palmer. PREOPERATIVE DIAGNOSIS: L3-4 diskitis with breakdown of the disk space and chronic back pain. POSTOPERATIVE DIAGNOSIS: L3-4 diskitis with breakdown of the disk space and chronic back pain. PROCEDURE PERFORMED: 1. Left L3-4 minimally invasive transforaminal lumbar interbody fusion. 2. Placement of interbody device at L3-4. 3. Placement of pedicle screw fixation at L3-4. 4. Use of the operative microscope. 5. Stealth/O-arm stereotactic navigation for screw placement and cage placement. 6. [place] of local autograft. 7. Use of allograft MagniFuse bone chips. FINDINGS: Successful TLIF. SPECIMENS: L3-4 disk. ESTIMATED BLOOD LOSS: 25 cc. INDICATIONS: The patient is a 66-year-old man who presented with L3-4 diskitis and was found to have some breakdown of the disk space. His back pain initially improved some, but he presented recently to the ID office with worsening back pain and some leg pain as well, in a L4 distribution on the left side. Followup MRI revealed some worsening of the inflammatory changes of the disk space, and the p bill was actually admitted to the hospital 2 days prior to the surgery due to increasing back pain. He presents electively today for washout and stabilization at L3-4. DESCRIPTION OF PROCEDURE: After informed consent was obtained from the patient, the patient was brou ght to the operating room, placed in supine position on the operating table. A formal time-out was p erformed, identifying the patient by name, medical record number and date of . Preoperative ant ibiotics were not given as the patient was on continuous infusion antibiotics. All appropriate leads were placed for intraoperative neurophysiologic monitoring including somatosensory evoked potentials and EMG. The patient was then turned to the prone position on the Armani table and all appropriate pressure points were padded and checked. The lumbar region was prepped and draped in the normal rex rile fashion. A stab incision was made over the right iliac crest, and the percutaneous pin was plac ed into the iliac crest, and the stereotactic frame was connected. An O-arm spin was then obtained s howing the relevant anatomy from L2-L5. We then used this to plan the appropriate trajectories for 1 8 mm lateral incisions out over the facet joints of L3-4. On the left side, the incision was made an d the subcutaneous tissues were dissected using monopolar electrocautery. The muscle fascia was open ed in line with the incision. The metrics tubular dilators were then used to dilate up to an 18 mm m etrics tube, and an 8 cm x 18 mm quadrant retractor was then placed over the facet joint at L3-4 on t he left. The navigation was used to localize the lower border of the L3 pedicle and the upper border of the L4 pedicle. The high-speed drill with a 2 mm alaina bur was then used to drill away the inf erior facet of L3 and the superior facet of L4 on the left side. This completely decompressed the fo ramen of the exiting L3 nerve root was visualized. The lateral portion of the lamina was taken as we ll and some yellow ligament was decompressed exposing the traversing L4 nerve root. This bone was mo rselized for locally harvested autograft. At this point, the L4 nerve root was retracted medially, a nd the operative microscope was used to visualize the disk space. The disk space was quite inflamed and the disk material was very spongy and some of this disk material was removed and sent for culture s and Gram stain. We then were able to form a radical diskectomy at this level, completely washing o ut the disk space from L3-L4. The endplates actually were reasonably well intact and the cartilagino us endplates were completely removed. Once the disk space was adequately prepared, the locally harve sted autograft was mixed with some MagniFuse bone chips and this was placed into the L3-4 disk space. The space was then sized for a 10 x 28 mm Medtronic Elevate cage, which was packed with the locally harvested autograft and then placed stereotactically into the disk space and opened to its full exte nt. AP and lateral radiographs confirmed good placement of the cage. A 2nd O-arm spin also confirme d this anatomy and was then used to localize the pedicle entry points, which were decorticated using a sharp awl. These were then tapped with a 5.5-6.5 mm tap under stereotaxis for pedicle screws at L3 and L4 bilaterally. At L3, we placed bilateral 6.5 x 55 mm Medtronic Voyager screws and at L4 on th e left, we placed a 6.5 x 50 mm Medtronic Voyager screw and on the right, a 6.5 x 55 mm screw. Anoth er O-arm spin was obtained showing all the screws in excellent placement and all the neurophysiologic monitoring remained table throughout the case. On the right side, we then placed a 45 mm titanium r od, and on the left a 40 mm titanium rods, which were locked into the screw heads with the locking ca ps. Vancomycin powder had been mixed with some of the bone graft that was placed into the disk space , and this had been copiously irrigated using bacitracin irrigation. Both wounds were also copiously irrigated using bacitracin irrigation, and the remainder of the vancomycin powder was placed into th e left side. At this point, final x-ray showed good placement of all the hardware and excellent alig nment. The muscle fascia was closed using interrupted 0 Vicryl. The deep dermis closed using interr upted 2-0 Vicryl. The skin was closed using Dermabond. Sterile dressings were placed. The patient was awakened in the operating room, transferred to the PACU in stable condition. There were no opera tive complications. I was scrubbed and present for the entire procedure. All sponge and needle coun ts were correct at the end of the case. FLUID/URINE OUTPUT: Per the anesthesia record. DRAINS: None. /[id number]/MODL
--- NOTE | 2017-06-29 17:17 | ASMTCMCOM ---
CM Note CM Note Notes: Pt had surgery today w/Dr Molina. Will see how he does w/therapies tomorrow and what dc needs will be. Referrals have been sent to SNF's and CM has discussed w/him prior to surgery as pt was anticipating possibility of needing rehab. Pt was current w/[facility] prior to admission. Date Signed: 06/29/2017 05:16 PM Electronically Signed By:Lissa Gill RN
[2017-06-29] MEDS: ACETAMINOPHEN 500 MG TAB PO PRN (17:59)
--- NOTE | 2017-06-29 18:44 | HOSPPROG ---
Hospitalist Progress Note Assessment/Plan: Attempted to see patient twice today but was not in room and in OR, will re evaluate in am. Chart/labs/vital signs reviewed. Objective: Vital Signs Temp Pulse Resp BP Pulse Ox 37.1 C 84 18 139/61 H 97 06/29/17 18:15 06/29/17 18:15 06/29/17 18:15 06/29/17 18:15 06/29/17 18:15 Microbiology 06/29/17 14:00 Gram Stain - Final Vertebral Disc 06/29/17 14:00 Gram Stain - Final Vertebral Disc Laboratory Results 06/28/17 12:22 06/28/17 12:22 06/28/17 06/29/17 06/30/17 05:59 05:59 05:59 Intake Total 500 4450 2210 Output Total 600 3500 480 Balance -429 247 4053 PT 13.7 SEC (12.0-15.0) 06/28/17 12:22 INR 1.03 (0.83-1.16) 06/28/17 12:22 ICD10 Worksheet Patient Problems: Problems Problem Status Onset Sepsis Acute Muscle spasm of back Acute Discitis of lumbar region Acute
[2017-06-29] MEDS: PATCH REMOVAL 1 EA PATCH TD SCH (21:41)
[2017-06-29] MEDS: SENNOSIDES/DOCUSATE SODIUM TAB PO SCH (21:42)
[2017-06-29] MEDS ORDERED: ceFAZolin 2 GM/DEXTROSE 100 ML IV SCH (22:00)
[2017-06-30] MEDS: oxyCODONE IR 5 MG TAB PO PRN ×7 (01:24→22:09)
[2017-06-30] MEDS: METHOCARBAMOL 750 MG TAB PO PRN ×4 (01:24→20:08)
[2017-06-30] MEDS: ACETAMINOPHEN 500 MG TAB PO PRN (01:24)
[2017-06-30] MEDS: ceFAZolin 2 GM/SWFI 2 GM/20 ML SYR IVP SCH ×3 (05:23→22:10)
[2017-06-30] MEDS: POTASSIUM Cl (KCl) 20 MEQ in NS 1,000 ML IV SCH (05:59)
[2017-06-30] MEDS: SENNOSIDES/DOCUSATE SODIUM TAB PO SCH ×2 (08:11→20:05)
[2017-06-30] MEDS: ENOXAPARIN 40 MG/0.4 ML SYR SC SCH (08:11)
[2017-06-30] MEDS: PANTOPRAZOLE SODIUM 40 MG TAB PO SCH (08:12)
[2017-06-30] MEDS: TAMSULOSIN HCL 0.4 MG CAP PO SCH (08:13)
[2017-06-30] MEDS: INSULIN LISPRO 100 UNIT/ML SC SCH ×3 (08:21→17:58)
[2017-06-30] MEDS: CHOLECALCIFEROL VIT D3 1,000 UNITS TAB PO SCH (08:22)
--- NOTE | 2017-06-30 09:18 | NEUSURGPN ---
Assessment/Plan: A: 66 yo male with hx of discitis sp L3/4 TLIF P: -Optimize pain management -Postop x-rays pending -Cultures intraop pending -Infectious disease onboard-appreciate their ongoing guidance on abx treatment -DVT: TEDs, SCD, lovenox to start today -Activity as tolerated -PT/OT -No brace required -Discussed with Dr Molina Subjective: low back pain, Denies any new leg pain, numbness or tingling Objective: NAD A&Ox3 CHOI x4, 5/5 and equal in BUE and BLE incisional dressing c/d/i - Physician Discussed Patient with : Tracy Neurosurgery Physical Exam - Vitals, I&O, Labs I and O 06/29/17 06/30/17 07/01/17 05:59 05:59 05:59 Intake Total 4450 3410 300 Output Total 3500 1980 200 Balance 950 1430 100 Weight 105.6 kg Intake: Oral (ml) 4450 10 300 IV Intake (ml) 2200 IV Infused (ml) 1200 Lr 1,000 ml @ 125 mls/hr 0 IV ONCE ONE Rx#: [id number] POTASSIUM Cl (KCl) 20 meq 1200 In Ns 1,000 ml @ 100 mls /hr IV CONT ASHLEY Rx#: [id number] Output: Urine (ml) 3500 1950 200 Toilet 1500 Urinal 3500 450 200 Estimated Blood Loss (ml) 30 Emesis (ml) 0 Other: Intake Quantity Yes Yes Yes Sufficient Output Comment Urinal due to void Number of Voids Toilet 0 1 Urinal 2 1 1 Number of Stools Toilet 1 Microbiology 06/29/17 14:00 Gram Stain - Final Vertebral Disc 06/29/17 14:00 Gram Stain - Final Vertebral Disc Vital Signs Temp Pulse Resp BP Pulse Ox 36.2 C 95 16 128/55 H 93 06/30/17 07:38 06/30/17 07:38 06/30/17 07:38 06/30/17 07:38 06/30/17 07:38 Laboratory Results 06/28/17 12:22 06/28/17 12:22 ICD10 Worksheet Patient Problems: Problems Problem Status Onset Discitis of lumbar region Acute Muscle spasm of back Acute Sepsis Acute
--- NOTE | 2017-06-30 12:33 | PCMIDPN ---
Assessment/Plan: MSSA AV endocarditis and lumbar discitis s/p almost 8 weeks IV with worsening back pain s/p L3/4 Minimally invasive TLIF. Interestingly MRI immediately before surgery showed improvement in L3-4 discitis and phlegmon L psoas almost improved. Recent repeat ECHO showed worsening AV function. --will need at least 2 weeks IV cefazolin post op, if cx + will need 8 weeks --abx stop date 07/13 --will need serial monitoring for AV. Meds cefazolin 2gm IV q8h Micro 06/29/17 OR cx x2: gram stain neg; Cx NGTD Subjective: Patient reports he is feeling times better postoperatively. Feeling like that a long-term facility will do him well. Objective: Vital Signs Temp Pulse Resp BP Pulse Ox 37.5 C 104 H 16 101/44 L 94 06/30/17 12:00 06/30/17 12:00 06/30/17 12:00 06/30/17 12:00 06/30/17 12:00 Microbiology 06/29/17 14:00 Gram Stain - Final Vertebral Disc 06/29/17 14:00 Gram Stain - Final Vertebral Disc Laboratory Results 06/28/17 12:22 06/28/17 12:22 06/29/17 06/30/17 07/01/17 05:59 05:59 05:59 Intake Total 4450 3410 300 Output Total 3500 1980 201 Balance 950 1430 99 - Physical Exam General Appearance: alert, no apparent distress Respiratory: No accessory muscle use Neck: supple Cardiac/Chest: regular rate, rhythm, systolic murmur Extremities: pedal edema Abdomen: non-tender, soft Back: other (Postop dressing still in place, no drain) Skin: No rash Neuro/Psych: alert, normal mood/affect, oriented x 3 - Line/s RUE PICC Lines: No drainage, No erythema - Time Spent With Patient Time Spent with Patient: greater than 35 minutes Time Spent with Patient: Greater than 35 minutes spent on this patients care, greater than 50% of time spent counseling, educating, and coordinating care regarding the above mentioned plan. ICD10 Worksheet Patient Problems: Problems Problem Status Onset Discitis of lumbar region Acute Muscle spasm of back Acute Sepsis Acute
[2017-06-30] MEDS: POLYETHYLENE GLYCOL 3350 17 GM PKT PO PRN (13:45)
--- NOTE | 2017-06-30 15:20 | ASMTCMCOM ---
CM Note CM Note Notes: Pt is accepted at [facility] and [facility] SNFs, pt chooses [facility]. D/c plan of care: [facility] when medically stable. Date Signed: 06/30/2017 03:20 PM Electronically Signed By:VANESSA Dyson
--- NOTE | 2017-06-30 16:24 | HOSPPROG ---
Hospitalist Progress Note Assessment/Plan: 66 yo M with hx of MSSA bacteremia/diskitis/endocarditis admitted with increased back pain # L3-L4 diskitis: s/p debridement by Dr. Molina, continued abx as next, PT/OT # MSSA bacteremia/diskitis/endocarditis: has been on approximately 8 weeks abx prior to admission but diskitis still active as above, per ID will continue ancef for minimum of 2 more weeks post surgery. # back pain: pain control improved post surgical intervention, continue prn opiates and today has not yet required IV opiate medications # DM2: well controlled on current regimen, continue ssi # h/o DVT: holding warfarin given recent surgery, started back on ppx lmwh and will resume warfarin when cleared by nsg # anemia: stable # bph: continue flomax # htn: BP has been on low end, continue holding lisinopril # IP status--will likely dc to snf in coming 1-2 days Subjective: no significant overnight events, patient feeling fairly well, pain controlled, ambulating though it is difficult Objective: Vital Signs Temp Pulse Resp BP Pulse Ox 37.5 C 104 H 16 101/44 L 94 06/30/17 12:00 06/30/17 12:00 06/30/17 12:00 06/30/17 12:00 06/30/17 12:00 Microbiology 06/29/17 14:00 Gram Stain - Final Vertebral Disc 06/29/17 14:00 Gram Stain - Final Vertebral Disc Laboratory Results 06/28/17 12:22 06/28/17 12:22 06/29/17 06/30/17 07/01/17 05:59 05:59 05:59 Intake Total 4450 3410 1300 Output Total 3500 1980 201 Balance 950 1430 1099 PT 13.7 SEC (12.0-15.0) 06/28/17 12:22 INR 1.03 (0.83-1.16) 06/28/17 12:22 awake alert nad anicteric op clear rrr systolic murmur cta b soft nt nd no cce warm dry well perfused ICD10 Worksheet Patient Problems: Problems Problem Status Onset Sepsis Acute Muscle spasm of back Acute Discitis of lumbar region Acute
--- NOTE | 2017-06-30 16:57 | PDIAF ---
- Diagnosis Diagnosis: MSSA AV endocarditis L3-L4 discitis Code Status: Full Code - Medication Management Discharge Medications: Medications to Continue on Transfer Acetaminophen [Tylenol ES 500 mg (*)] 500 mg PO Q6 PRN 04/19/17 [Last Taken Unknown] Cholecalciferol Vit D3 [Vitamin D3 (*)] 10,000 units PO DAILY 04/19/17 [Last Taken 06/21/17] Lisinopril [Zestril 5 mg (*)] 5 mg PO DAILY 04/19/17 [Last Taken 06/27/17] [place]-3 Fatty Acids [Fish Oil 1000 mg (*)] 1,000 mg PO DAILY 04/19/17 [Last Taken Unknown] Omeprazole 20 mg PO DAILY 04/19/17 [Last Taken 06/27/17] Warfarin Sodium [Coumadin 7.5MG (*)] 7.5 mg PO DAILY 04/19/17 [Last Taken ] metFORMIN HCL [Metformin HCl] 500 mg PO BIDMEAL 04/19/17 [Last Taken 06/27/17] Tamsulosin HCl [Flomax 0.4 MG (*)] 0.4 mg PO DAILY 06/16/17 [Last Taken 06/27/17 ] traMADol [Ultram 50 mg (*)] 100 mg PO TID 06/16/17 [Last Taken 06/27/17] Cefazolin 10mg/H Cont.Infusion 0 mg IV CONT 06/28/17 [Last Taken 06/28/17] Enoxaparin [Lovenox 100 MG (*)] 100 mg SQ Q12H 06/28/17 [Last Taken 06/27/17] Penitentiary Antibiotics: cefazolin 2gm IV q8h Penitentiary Antibiotic Stop Date: 07/13/17 Discharge Medications: Refer to the Discharge Home Medication list for PRN reason. PICC Care - Routine: Yes - Orders Isolation Type: None - Labs/Radiology CBC w/diff Date: 07/06/17 (Weekly, Thursday) CMP Date: 07/06/17 (Weekly, Thursday) CRP Date: 07/06/17 (Weekly, Thursday) Call or Fax Lab and Imaging Results to: Dedra Finnegan MD [facility] for Infectious Diseases at fax [phone] - Follow Up Care Current Providers and Referrals: NONE *PRIMARY CARE P,. [Primary Care Provider] - As per Instructions Dedra Finnegan MD [Medical Doctor] - 07/09/17 2:00 pm
[2017-06-30] MEDS: PATCH REMOVAL 1 EA PATCH TD SCH (20:08)
[2017-07-01] MEDS: oxyCODONE IR 5 MG TAB PO PRN ×4 (01:50→15:41)
[2017-07-01] MEDS: METHOCARBAMOL 750 MG TAB PO PRN ×3 (01:50→14:40)
[2017-07-01] MEDS: ceFAZolin 2 GM/SWFI 2 GM/20 ML SYR IVP SCH ×2 (05:40→13:19)
[2017-07-01 08:17] VITALS: BP 93/51
[2017-07-01] MEDS: INSULIN LISPRO 100 UNIT/ML SC SCH ×2 (08:20→12:26)
[2017-07-01] MEDS: POLYETHYLENE GLYCOL 3350 17 GM PKT PO PRN (08:34)
[2017-07-01] MEDS: CHOLECALCIFEROL VIT D3 1,000 UNITS TAB PO SCH (08:34)
[2017-07-01] MEDS: SENNOSIDES/DOCUSATE SODIUM TAB PO SCH (08:35)
[2017-07-01] MEDS: ENOXAPARIN 40 MG/0.4 ML SYR SC SCH (08:36)
[2017-07-01] MEDS: PANTOPRAZOLE SODIUM 40 MG TAB PO SCH (08:36)
[2017-07-01] MEDS: TAMSULOSIN HCL 0.4 MG CAP PO SCH (08:36)
--- NOTE | 2017-07-01 09:20 | SOAPPROG ---
SOAP Progress Note Assessment/Plan: Assessment: 66 yo M POD #2 L3/4 TLIF with hx of L3/4 MSSA endocarditis and discitis. Plan: neuro: stable and doing well overall intraoperative cultures of disc have no growth to date, on ancef per ID PT/OT scd/mayur/lovenox for dvt prophylaxis patient would like to go to SNF rehab post op x-rays look great please call with neuro changes discussed with Dr Molina 07/01/17 09:17 Subjective: back pain improving, minimal leg pain, no weakness. Objective: Vital Signs Temp Pulse Resp BP Pulse Ox 37.4 C 105 H 17 93/51 L 88 L 07/01/17 08:00 07/01/17 08:00 07/01/17 08:00 07/01/17 08:00 07/01/17 08:00 Microbiology 06/29/17 14:00 Gram Stain - Final Vertebral Disc 06/29/17 14:00 Gram Stain - Final Vertebral Disc Laboratory Results 06/28/17 12:22 06/28/17 12:22 06/30/17 07/01/17 07/02/17 05:59 05:59 05:59 Intake Total 3410 3650 Output Total 1980 2701 Balance 1430 949 PT 13.7 SEC (12.0-15.0) 06/28/17 12:22 INR 1.03 (0.83-1.16) 06/28/17 12:22 AAOx4, +FC PERRL, EOMI, no facial droop 5/5 + light touch C/D/I ICD10 Worksheet Patient Problems: Problems Problem Status Onset Discitis of lumbar region Acute Muscle spasm of back Acute Sepsis Acute
--- NOTE | 2017-07-01 16:08 | ASMTCMCOM ---
CM Note CM Note Notes: Pt medically stable for d/c to [facility], orders sent in [employer]. [facility] scheduled wc van pickup for 17:00. AJ Luciano called report. Date Signed: 07/01/2017 04:08 PM Electronically Signed By:VANESSA Dyson
--- NOTE | 2017-07-01 16:53 | HOSPPROG ---
Hospitalist Progress Note Assessment/Plan: 66 yo M with hx of MSSA bacteremia/diskitis/endocarditis admitted with increased back pain # L3-L4 diskitis: s/p debridement by Dr. Molina, continued abx as next, PT/OT # MSSA bacteremia/diskitis/endocarditis: has been on approximately 8 weeks abx prior to admission but diskitis still active as above, per ID will continue ancef for minimum of 2 more weeks post surgery. # back pain: pain control improved post surgical intervention, continue prn opiates and today has not yet required IV opiate medications # DM2: well controlled on current regimen, continue ssi # h/o DVT: holding warfarin given recent surgery, started back on ppx lmwh and will resume warfarin when cleared by nsg # anemia: stable # bph: continue flomax # htn: BP has been on low end, continue holding lisinopril. no fever or any data to suggest infection or low volume state. tolerating oral/fluids well -Agree with d/c per surgery. He will f/u with ID and with NS. A decision regarding restarting [facility] anticoagulation will need to be made on f/u with neurosurgery. Cont to hold Lisinopril -D/c per surgery Subjective: feels good, no pain. optimistic about discharge Objective: Vital Signs Temp Pulse Resp BP Pulse Ox 37.4 C 105 H 17 93/51 L 88 L 07/01/17 08:00 07/01/17 08:00 07/01/17 08:00 07/01/17 08:00 07/01/17 08:00 Microbiology 06/29/17 14:00 Gram Stain - Final Vertebral Disc 06/29/17 14:00 Gram Stain - Final Vertebral Disc Laboratory Results 06/28/17 12:22 06/28/17 12:22 06/30/17 07/01/17 07/02/17 05:59 05:59 05:59 Intake Total 3410 3650 780 Output Total 1980 2701 775 Balance 1430 949 5 PT 13.7 SEC (12.0-15.0) 06/28/17 12:22 INR 1.03 (0.83-1.16) 06/28/17 12:22 - Physical Exam Constitutional: no apparent distress, appears nourished Eyes: PERRL, EOMI Ears, Nose, Mouth, Throat: moist mucous membranes, hearing normal Cardiovascular: regular rate and rhythym Respiratory: no respiratory distress, no rales or rhonchi Skin: warm Psychiatric: interacting appropriately, not anxious, not encephalopathic Lymph, Heme, Immunologic: No petechiae ICD10 Worksheet Patient Problems: Problems Problem Status Onset Discitis of lumbar region Acute Muscle spasm of back Acute Sepsis Acute
--- NOTE | 2017-07-02 10:11 | ASDISCHSUM ---
Discharge Information Plan Status:SNF Medically Cleared to Leave: Discharge Date:07/01/2017 06:00 PM D/C Disposition:[facility] ADT D/C Disposition:Other Rehab, Not [facility] Projected Discharge Date:07/02/2017 11:00 AM Transportation at D/C:Wheelchair Van Discharge Delay Reason: Follow-Up Date:07/02/2017 11:00 AM Discharge Slot: Final Diagnosis: Placement Information Referral Type:*Assisted/SNF Referral ID:[id number] Provider Name:Mariah Delgado Address 1:[address] Phone Number: Address 2: Fax Number: City:[place] Selection Factors: State:[place] Patient Contact Information Contact Name:KELSEY Relationship: Address:[address] [place] City:[place] Alternate Phone: State/Zip Code:[place] [address] Email: Financial Information Financial Class:Medicare Advantage Plans Primary Plan Desc:[facility] ADVANTAGE PLANS Primary Plan Number:[id number] Secondary Plan Desc: Secondary Plan Number: Assessment Information [facility] CM Progress Note CM Note CM Note Notes: Patient admitted with intractable back pain. He is scheduled to have surgery tomorrow with Dr Molina. He requested to speak to Case Management about SNF upon discharge. We discussed the process, and I suggested some facilities close to his home in [place]. I sent referrals to [facility], [facility], and [email or web address]. He will talk with his , and we will revisit the conversation after his surgery. Date Signed: 06/28/2017 12:37 PM Electronically Signed By:Hermelinda Whiting RN [facility] CM Progress Note CM Note CM Note Notes: Pt had surgery today w/Dr Molina. Will see how he does w/therapies tomorrow and what dc needs will be. Referrals have been sent to SNF's and CM has discussed w/him prior to surgery as pt was anticipating possibility of needing rehab. Pt was current w/[facility] prior to admission. Date Signed: 06/29/2017 05:16 PM Electronically Signed By:Lissa Gill RN [facility] CM Progress Note CM Note CM Note Notes: [facility], pt chooses [facility]. D/c plan of care: [facility] when medically stable. Date Signed: 06/30/2017 03:20 PM Electronically Signed By:VANESSA Dyson [facility] Progress Note CM Note CM Note Notes: Pt medically stable for d/c to [facility], orders sent in [employer]. [facility] scheduled wc van pickup for 17:00. AJ Luciano called report. Date Signed: 07/01/2017 04:08 PM Electronically Signed By:VANESSA Dyson Intervention Information Intervention Type:*IM-Signed Date of Service:07/01/2017 02:38 PM Patient Type:Inpatient Staff Member:Marta Ulloa Hours: Discipline: Severity: Comment:
== END 2017-07-01 18:00 | DRG 460 ==
LOC: F3N 23:58
PROVIDERS: ADMIT Neurological Surgery; ATTEND Neurological Surgery
PROC: 0SG00AJ Fusion of Lumbar Vertebral Joint with Interbody Fusion Device, Posterior Approach, Anterior Column, Open Approach (ICD-10-PCS; principal; 2017-06-29 10:15)
PROC: 0ST20ZZ Resection of Lumbar Vertebral Disc, Open Approach (ICD-10-PCS; principal; 2017-06-29 10:15)
DX: M46.46 Discitis, unspecified, lumbar region (principal); M86.9 Osteomyelitis, unspecified; E11.9 Type 2 diabetes mellitus without complications; I35.0 Nonrheumatic aortic (valve) stenosis; I10 Essential (primary) hypertension; N40.0 Benign prostatic hyperplasia without lower urinary tract symptoms; Z86.718 Personal history of other venous thrombosis and embolism; Z79.01 Long term (current) use of anticoagulants; Z86.19 Personal history of other infectious and parasitic diseases
CPT/HCPCS: 96374; 97116-GP; 97161-GP; 97165-GO; 97530-GO; 97530-GP; 97535-GO; C1713; C1762; G8978-GP-CJ; G8979-GP-CI; G8987-GO-CJ; G8988-GO-CI; J0171; J0690; J1170; J1650; J1815; J2250; J2270; J2704; J3010; J3360; J3370; J3480

== ENCOUNTER → 2017-08-19 | Outpatient (CLI) | payer OTHER | LOC: FIMAGING 12:30 | PROVIDERS: ATTEND Physician Assistant | DX: M46.26 Osteomyelitis of vertebra, lumbar region (principal); Z98.1 Arthrodesis status ==